=== PATIENT | female | born 1950 | race Hispanic/Latino ===

== ENCOUNTER 2017-11-22 08:20 | Day surgery (SDC) | payer MEDICARE, OTHER ==
[2017-11-22] MEDS ORDERED: TETRACAINE 0.5% OD SCH (10:45)
[2017-11-22] MEDS: VIGAMOX OD SCH ×3 (11:00→11:10)
[2017-11-22] MEDS: MYDRIACYL OD SCH ×3 (11:00→11:10)
[2017-11-22] MEDS: AK-Dilate OD SCH ×3 (11:00→11:10)
[2017-11-22] MEDS ORDERED: ZOFRAN IV PRN (11:26)
[2017-11-22] MEDS ORDERED: DILAUDID IV PRN (11:26)
[2017-11-22] MEDS ORDERED: NARCAN 0.4 MG/1 ML IV PRN (11:26)
--- NOTE | 2017-11-22 11:26 | Anesthesia Day of Surgery ---
Anesthesia Day of Surgery - Day of Surgery Patient Examined: Yes Patient H&P Reviewed: Yes Patient is NPO: Yes
--- NOTE | 2017-11-22 11:26 | Anesthesia Consultation ---
Anesthesia Consult and Med Hx Date of service: 11/22/17 (tolerates 6 METS. performs all ADLs. ) - Airway Anesthetic Teeth Evaluation: Dentures (full upper and lower), Edentulous ROM Head & Neck: Adequate Mental/Hyoid Distance: Adequate Mallampati Class: Class II Intubation Access Assessment: Good - Pulmonary Exam CTA: No (rhonchi in peripheral airways L>>R) - Cardiac Exam Cardiac Exam: RRR - Pre-Operative Health Status ASA Pre-Surgery Classification: ASA2 Proposed Anesthetic Plan: MAC - Pulmonary Hx Smoking: Yes (QUIT SOMETIME IN THE PAST YEAR) COPD: Yes - Cardiovascular System Hx Hypertension: Yes (WHITECOAT SYNDROME) - Central Nervous System Hx Psychiatric Problems: No - Endocrine Hx Hypothyroidism: Yes - Other Systems Hx Alcohol Use: No Hx Substance Use: No Hx Cancer: No
[2017-11-22] MEDS ORDERED: SUBLIMAZE ONE (11:57)
[2017-11-22] MEDS ORDERED: VERSED ONE (11:57)
[2017-11-22] MEDS ORDERED: DIAMOX PO ONE (12:30)
--- NOTE | 2017-11-22 12:41 | Operative Report ---
Operative Report Operative Report: PATIENT'S NAME: DATE OF : DATE OF SURGERY: 11/22/2017 PREOPERATIVE DIAGNOSIS: Cataract right eye POSTOPERATIVE DIAGNOSIS: Same OPERATIVE PROCEDURE: Phacoemulsification with intraocular lens implantation, right eye SURGEON: Kristen Gambino M.D. GROUND WATER PUMP INSTALLER SURGEON: Rachel Lens: [id number] 23.5 D ANESTHESIA: Monitored anesthesia care in combination with topical and intracameral anesthesia because of the established specific risk of reflux, arrhythmias, or anxiety attacks associated with ocular manipulation, as well as the difficulty of the diamond sizer and sorter to manage such potentially catastrophic events while simultaneously attempting to complete the surgical procedure and was deemed necessary for the patient's safety to have an Historic Interpreter present during the procedure whenever possible. An Historic Interpreter was utilized to regulate the intravenous sedation of the patient so the patient was cooperative yet not asleep in order for the patient to successfully maintain fixation of the eye on the operating light of the microscope. COMPLICATIONS: [No surgical complications] No blood loss. ALLERGIES: Codeine penicillin PROGNOSIS: Excellent INDICATIONS FOR SURGERY: The patient is undergoing surgery in the hopes of eliminating or improving these visual difficulties. PROCEDURE: After arriving at the surgery center, the patient was given topical anesthetic and dilating drops, as noted in the record. The patient was then taken into the operating room and given more anesthetic drops. The eyelids , lashes, and lid margins were scrubbed with Betadine solution, and the patient was draped. The Nurse Historic Interpreter administered IV sedation and monitored the patient during the procedure. The eye was then fixated with a 0.12, and a stab incision was made in the peripheral clear cornea into the anterior chamber. This was made on my left side. Viscoelastic was next used to fill the anterior chamber. The eye was once again fixated with the 0.12 forceps and a keratome was used make an incision in clear cornea peripherally on my right hand side temporally. The capsule forceps were used to open the central anterior capsule and then make a continuous round capsulotomy. Hydrodissection was carried out utilizing a cannula and balanced salt solution to delineate the cortical material from the capsule and the nucleus from the cortical material. The phaco tip was introduced into the eye and used to remove the anterior cortical material in the area of the capsulotomy. Then the phaco tip was buried into the nucleus, and a chopping instrument was introduced into the eye and used to provide countertraction in the nucleus between this instrument and the phaco tip fracturing the nucleus. This procedure was repeated multiple times, providing multiple small segments of the lens, and then the phaco tip was used to remove each of these segments. An I/A tip was then used to remove the remaining cortex. The anterior chamber was refilled with viscoelastic. An one-piece, acrylic intraocular lens was then placed into an inserting cartridge. The tip of the inserting cartridge was introduced into the keratome incision and into the anterior chamber. The implant was gently advanced through the cartridge and into the eye, where it unfolded, and both haptics were placed in the capsular bag, where it centered nicely and appeared to be well fixated. After placement of the intraocular lens, the I~and~A handpiece was placed back into the eye and used to remove the viscoelastic, including viscoelastic that was behind the optic of the intraocular lens. The anterior chamber was then filled with balanced salt solution, and hydration of the wound was used to cause swelling of the wound and more appropriate watertight closure. When the wound was found to be firm, the patient was asked to comment on how bright the light was. If there was no light perception at all or if the light was substantially dimmer than during the rest of the surgery, the amount of fluid in the eye was decompressed to lower the intraocular pressure until the patient could see the bright light again. This was done to avoid any damage or decreased blood flow to the optic nerve. MEDICATIONS APPLIED AT END OF SURGERY: One drop of Pred Forte and Vigamox The patient was given a shield to wear at night and was instructed not to rub or push on the eye. DISCHARGE SUMMARY: The patient was released in stable condition. The patient and those with the patient were given a written sheet of postoperative instructions and counseling on any abnormal laboratory studies. The patient is to see us tomorrow for follow-up in the office and is to call immediately for any difficulties. Kristen Gambino M.D. Date
--- NOTE | 2017-11-22 12:42 | Short Stay Summary ---
Short Stay Documentation Date of service: 11/22/17 - History H&P: obtained from office - Allergies and Medications Current Medications: Allergies codeine Allergy (Verified 11/21/17 15:01) NAUSEA AND VOMITING Penicillins Allergy (Verified 11/21/17 15:01) Hives Home Medications Medication Instructions Recorded Confirmed Last Taken Type Diltiazem [CarDIZEM] 60 mg PO BID 11/21/17 11/21/17 11/22/17 06:30 History Docusate Sodium [Colace] 100 mg PO BID PRN 11/21/17 11/21/17 11/21/17 History Ergocalciferol [Vitamin D2] 1 cap PO QWEEK 11/21/17 11/22/17 11/16/17 History Levothyroxine [Synthroid] 50 mcg PO QAM 11/21/17 11/21/17 11/22/17 06:30 History Magnesium Chloride 400 mg PO BID 11/21/17 11/21/17 11/21/17 History Montelukast Sodium [Singulair] 4 mg PO QHS 11/21/17 11/21/17 11/21/17 History Potassium Chloride [K-Dur] 10 meq PO QDAY 11/21/17 11/21/17 11/21/17 History Active Medications Hydromorphone HCl (Dilaudid) 0.25 mg IV Q10MIN PRN PRN Reason: Pain, Moderate (4-6) Stop: 11/22/17 18:00 Moxifloxacin HCl (Vigamox) 1 drops OD Q5MIN [facility] Stop: 11/24/17 17:00 Last Admin: 11/22/17 11:10 Dose: 1 drops Naloxone HCl (Narcan 0.4 Mg/1 Ml) 0.1 mg IV Q2MIN PRN PRN Reason: Res Rate </= 8 or 02 SAT < 92% Ondansetron HCl (Zofran) 4 mg IV ONCE PRN PRN Reason: Nausea And Vomiting Stop: 11/22/17 18:00 Prednisolone Acetate (Pred Forte 1%) 1 drops OD QID [facility] Tropicamide (Mydriacyl) 1 drops OD Q5MIN [facility] Stop: 11/24/17 10:47 Last Admin: 11/22/17 11:10 Dose: 1 drops - Brief post op/procedure progress note Date of procedure: 11/22/17 Pre-op diagnosis: right cataract Post-op diagnosis: same Procedure: Phacoemulsification with intraocular lens insertion right eye Anesthesia: MAC, local Surgeon: JOSE NOVOA Estimated blood loss: none Pathology: none Condition: stable - Disposition Condition at discharge: Good Disposition: DC-01 TO HOME OR SELFCARE - Discharge Diagnoses (1) Cataract Status: Acute Qualifiers: Cataract type: age-related Age-related cataract type: nuclear Laterality : right Qualified Code(s): H25.11 - Age-related nuclear cataract, right eye Short Stay Discharge Plan Additional Instructions: FOLLOW SURGEON INSTRUCTION SHEETS. Follow up with: WHIT RANGEL, [facility] DES[facility] [Primary Care Provider] - 7 Days Forms: Outpatient Surgery [facility] Inst.
[2017-11-22] MEDS ORDERED: PRED FORTE 1% OD SCH (14:00)
--- NOTE | 2017-11-22 15:33 | Post Anesthesia Evaluation ---
- Post Anesthesia Evaluation Patient Participated: Yes Airway Patent: Yes Stable Respiratory Function: Yes Nausea/Vomiting: No Temp > 96.8F: Yes Pain Manageable: Yes Adequeate Hydration: Yes Anesthesia Complications: No
[2017-11-22 19:14] VITALS: BP 117/63
== END 2017-11-22 13:10 | disposition home or self-care (01) ==
LOC: OR 08:20
DX: H26.9 Unspecified cataract (principal); I10 Essential (primary) hypertension; E03.9 Hypothyroidism, unspecified; Z88.0 Allergy status to penicillin; Z88.6 Allergy status to analgesic agent; Z87.891 Personal history of nicotine dependence
CPT/HCPCS: 66984; J2250; J3010; V2632

== ENCOUNTER 2017-12-06 07:27 | Day surgery (SDC) | payer MEDICARE, OTHER ==
--- NOTE | 2017-12-06 08:37 | Anesthesia Consultation ---
Anesthesia Consult and Med Hx Date of service: 12/06/17 - Airway Anesthetic Teeth Evaluation: Dentures, Edentulous ROM Head & Neck: Adequate Mental/Hyoid Distance: Adequate Mallampati Class: Class II Intubation Access Assessment: Probably Good - Pulmonary Exam CTA: Yes - Cardiac Exam Cardiac Exam: RRR - Pre-Operative Health Status ASA Pre-Surgery Classification: ASA2 Proposed Anesthetic Plan: MAC - Pulmonary Hx Smoking: Yes (ex smoker) COPD: Yes - Cardiovascular System Hx Hypertension: Yes (white coat) - Endocrine Hx Hypothyroidism: Yes - Additional Comments Anesthesia Medical History Comments: tolerated similar procedure and anesthesia on other eye well - 11/22
--- NOTE | 2017-12-06 08:37 | Anesthesia Day of Surgery ---
Anesthesia Day of Surgery - Day of Surgery Patient Examined: Yes Patient H&P Reviewed: Yes Patient is NPO: Yes
[2017-12-06] MEDS ORDERED: TETRACAINE 0.5% OS ONE (09:00)
[2017-12-06] MEDS: MYDRIACYL OS SCH ×2 (09:07→09:11)
[2017-12-06] MEDS: VIGAMOX OS SCH ×2 (09:08→09:11)
[2017-12-06] MEDS: AK-Dilate OS SCH ×2 (09:08→09:11)
[2017-12-06] MEDS ORDERED: VERSED ONE (10:31)
--- NOTE | 2017-12-06 11:07 | Operative Report ---
Operative Report Operative Report: PATIENT'S NAME: DATE OF : DATE OF SURGERY: 12/06/2017 PREOPERATIVE DIAGNOSIS: Cataract left eye POSTOPERATIVE DIAGNOSIS: Same OPERATIVE PROCEDURE: Phacoemulsification with intraocular lens implantation, left eye SURGEON: Kristen Gambino M.D. CHECKER PRODUCT DESIGN SURGEON: Rachel Lens: [id number] 23.0 D ANESTHESIA: Monitored anesthesia care in combination with topical and intracameral anesthesia because of the established specific risk of reflux, arrhythmias, or anxiety attacks associated with ocular manipulation, as well as the difficulty of the automatic tire tester to manage such potentially catastrophic events while simultaneously attempting to complete the surgical procedure and was deemed necessary for the patient's safety to have an Pull Up Hand present during the procedure whenever possible. An Pull Up Hand was utilized to regulate the intravenous sedation of the patient so the patient was cooperative yet not asleep in order for the patient to successfully maintain fixation of the eye on the operating light of the microscope. COMPLICATIONS: No surgical complications No blood loss. ALLERGIES: Codeine and penicillin PROGNOSIS: Excellent INDICATIONS FOR SURGERY: The patient is undergoing surgery in the hopes of eliminating or improving these visual difficulties. PROCEDURE: After arriving at the surgery center, the patient was given topical anesthetic and dilating drops, as noted in the record. The patient was then taken into the operating room and given more anesthetic drops. The eyelids , lashes, and lid margins were scrubbed with Betadine solution, and the patient was draped. The Nurse Pull Up Hand administered IV sedation and monitored the patient during the procedure. The eye was then fixated with a 0.12, and a stab incision was made in the peripheral clear cornea into the anterior chamber. This was made on my left side. Viscoelastic was next used to fill the anterior chamber. The eye was once again fixated with the 0.12 forceps and a keratome was used make an incision in clear cornea peripherally on my right hand side temporally. The capsule forceps were used to open the central anterior capsule and then make a continuous round capsulotomy. Hydrodissection was carried out utilizing a cannula and balanced salt solution to delineate the cortical material from the capsule and the nucleus from the cortical material. The phaco tip was introduced into the eye and used to remove the anterior cortical material in the area of the capsulotomy. Then the phaco tip was buried into the nucleus, and a chopping instrument was introduced into the eye and used to provide countertraction in the nucleus between this instrument and the phaco tip fracturing the nucleus. This procedure was repeated multiple times, providing multiple small segments of the lens, and then the phaco tip was used to remove each of these segments. An I/A tip was then used to remove the remaining cortex. The anterior chamber was refilled with viscoelastic. An one-piece, acrylic intraocular lens was then placed into an inserting cartridge. The tip of the inserting cartridge was introduced into the keratome incision and into the anterior chamber. The implant was gently advanced through the cartridge and into the eye, where it unfolded, and both haptics were placed in the capsular bag, where it centered nicely and appeared to be well fixated. After placement of the intraocular lens, the I~and~A handpiece was placed back into the eye and used to remove the viscoelastic, including viscoelastic that was behind the optic of the intraocular lens. The anterior chamber was then filled with balanced salt solution, and hydration of the wound was used to cause swelling of the wound and more appropriate watertight closure. When the wound was found to be firm, the patient was asked to comment on how bright the light was. If there was no light perception at all or if the light was substantially dimmer than during the rest of the surgery, the amount of fluid in the eye was decompressed to lower the intraocular pressure until the patient could see the bright light again. This was done to avoid any damage or decreased blood flow to the optic nerve. MEDICATIONS APPLIED AT END OF SURGERY: One drop of Pred Forte and Vigamox The patient was given a shield to wear at night and was instructed not to rub or push on the eye. DISCHARGE SUMMARY: The patient was released in stable condition. The patient and those with the patient were given a written sheet of postoperative instructions and counseling on any abnormal laboratory studies. The patient is to see us tomorrow for follow-up in the office and is to call immediately for any difficulties. Kristen Gambino M.D. Date
--- NOTE | 2017-12-06 11:07 | Short Stay Summary ---
Short Stay Documentation Date of service: 12/06/17 - History H&P: obtained from office - Allergies and Medications Current Medications: Allergies codeine Allergy (Verified 11/21/17 15:01) NAUSEA AND VOMITING Penicillins Allergy (Verified 11/21/17 15:01) Hives Home Medications Medication Instructions Recorded Confirmed Last Taken Type Diltiazem [CarDIZEM] 60 mg PO BID 11/21/17 12/06/17 12/05/17 21:00 History Docusate Sodium [Colace] 100 mg PO BID PRN 11/21/17 11/21/17 12/05/17 21:00 History Ergocalciferol [Vitamin D2] 1 cap PO QWEEK 11/21/17 12/06/17 11/30/17 09:00 History Levothyroxine [Synthroid] 50 mcg PO QAM 11/21/17 12/06/17 12/06/17 06:00 History Magnesium Chloride 400 mg PO BID 11/21/17 12/06/17 12/05/17 21:00 History Montelukast Sodium [Singulair] 4 mg PO QHS 11/21/17 12/06/17 12/05/17 21:00 History Potassium Chloride [K-Dur] 10 meq PO QDAY 11/21/17 12/06/17 12/05/17 09:00 History Active Medications Acetazolamide (Diamox) 500 mg PO ONCE ONE Stop: 12/06/17 11:07 Moxifloxacin HCl (Vigamox) 1 drops OS Q5MIN [facility] Stop: 12/08/17 09:01 Last Admin: 12/06/17 09:11 Dose: 1 drops Phenylephrine HCl (Ak-Dilate) 1 drops OS Q5MIN [facility] Stop: 12/08/17 08:51 Last Admin: 12/06/17 09:11 Dose: 1 drops Prednisolone Acetate (Pred Forte 1%) 1 drops OS QID [facility] Tropicamide (Mydriacyl) 1 drops OS Q5MIN [facility] Stop: 12/08/17 09:31 Last Admin: 12/06/17 09:11 Dose: 1 drops - Brief post op/procedure progress note Date of procedure: 12/06/17 Pre-op diagnosis: left cataract Post-op diagnosis: same Procedure: Phacoemulsification with intraocular lens insertion left eye Anesthesia: MAC, local Surgeon: JOSE NOVOA Estimated blood loss: none Pathology: none Condition: stable - Disposition Condition at discharge: Good Disposition: DC-01 TO HOME OR SELFCARE - Discharge Diagnoses (1) Cataract Status: Acute Qualifiers: Cataract type: age-related Age-related cataract type: nuclear Laterality : left Qualified Code(s): H25.12 - Age-related nuclear cataract, left eye Short Stay Discharge Plan Follow up with: WHIT RANGEL [Other] - 7 Days
[2017-12-06 11:13] VITALS: BP 101/60
[2017-12-06] MEDS ORDERED: DIAMOX PO NR (11:30)
[2017-12-06] MEDS ORDERED: PRED FORTE 1% OS SCH (12:00)
== END 2017-12-06 11:37 | disposition home or self-care (01) ==
LOC: OR 07:27
DX: H26.9 Unspecified cataract (principal); I10 Essential (primary) hypertension; J44.9 Chronic obstructive pulmonary disease, unspecified; E03.9 Hypothyroidism, unspecified; Z87.891 Personal history of nicotine dependence
CPT/HCPCS: 66984; J2250; V2632

== ENCOUNTER 2020-01-02 14:07 | Inpatient (IN) | payer MEDICARE, OTHER ==
[2020-01-02] MEDS ORDERED: DICYCLOMINE 20 MG/2 ML INJ IM ONE (14:18)
[2020-01-02] MEDS ORDERED: SODIUM CHLORIDE 0.9% 1000 ML 1,000 ML IV ONE (14:18)
--- NOTE | 2020-01-02 14:50 | Emergency Department Report ---
ED General Adult HPI - General Stated complaint: DIARRHEA Time Seen by Provider: 01/02/20 14:13 - History of Present Illness Initial comments: Patient is a 69-year-old female who is presenting with weakness and diarrhea for the past 3 days. Patient states she is been having large amounts of dark-colored stool. She denies nausea vomiting. Patient states she has crampy abdominal pain in the right lower quadrant. Patient denies fever. Katerina ent was found lying on the ground today covered in feces. Patient was states she was too weak to stand. Severity scale (0 -10): 6 Quality: other (crampy, worse at night) Consistency: colicky Associated Symptoms: loss of appetite, malaise, weakness. denies: confusion, chest pain, cough, diaphoresis, fever/chills, headaches, nausea/vomiting, rash, seizure, shortness of breath, syncope - Related Data Home Medications Medication Instructions Recorded Confirmed Last Taken Levothyroxine [Synthroid] 25 mcg PO QAM 11/21/17 01/02/20 01/02/20 Potassium Chloride [K-Dur] 10 meq PO QDAY 11/21/17 01/02/20 01/02/20 dilTIAZem [CarDIZEM] 120 mg PO BID 11/21/17 01/02/20 01/02/20 Albuterol Sulfate [Proair 90 mcg IH Q4H PRN 01/02/20 01/02/20 Unknown Digihaler] Magnesium Oxide 400 mg PO BID 01/02/20 01/02/20 01/02/20 Allergies Allergy/AdvReac Type Severity Reaction Status Date / Time codeine Allergy NAUSEA AND Verified 11/21/17 15:01 VOMITING lincomycin [From Lincocin] Allergy Unknown Verified 01/02/20 15:19 Penicillins Allergy Hives Verified 11/21/17 15:01 ED Review of Systems ROS: Stated complaint: DIARRHEA Other details as noted in HPI Comment: All other systems reviewed and negative ED Past Medical Hx - Past Medical History Hx Hypertension: Yes (white coat) Hx COPD: Yes - Social History Smoking Status: Former Smoker - Medications Home Medications: Home Medications Medication Instructions Recorded Confirmed Last Taken Type Levothyroxine [Synthroid] 25 mcg PO QAM 11/21/17 01/02/20 01/02/20 History Potassium Chloride [K-Dur] 10 meq PO QDAY 11/21/17 01/02/20 01/02/20 History dilTIAZem [CarDIZEM] 120 mg PO BID 11/21/17 01/02/20 01/02/20 History Albuterol Sulfate [Proair 90 mcg IH Q4H PRN 01/02/20 01/02/20 Unknown History Digihaler] Magnesium Oxide 400 mg PO BID 01/02/20 01/02/20 01/02/20 History ED Physical Exam - General General appearance: alert, in no apparent distress - Head Head exam: Present: atraumatic, normocephalic - Eye Eye exam: Present: normal appearance - ENT ENT exam: Present: mucous membranes dry - Neck Neck exam: Present: normal inspection - Respiratory Respiratory exam: Present: normal lung sounds bilaterally. Absent: respiratory distress, wheezes, rales - Cardiovascular Cardiovascular Exam: Present: regular rate, normal rhythm. Absent: normal heart sounds, systolic murmur, diastolic murmur, rubs, gallop - GI/Abdominal GI/Abdominal exam: Present: soft, tenderness (RLQ), normal bowel sounds. Absent: distended, guarding, rebound, rigid - Rectal Rectal exam: Present: normal inspection, heme (+) stool, black stool - Extremities Exam Extremities exam: Present: normal inspection - Back Exam Back exam: Present: normal inspection - Neurological Exam Neurological exam: Present: alert, oriented X3 - Psychiatric Psychiatric exam: Present: normal affect, normal mood - Skin Skin exam: Present: warm, dry, intact, normal color. Absent: rash ED Course Vital Signs 01/02/20 01/02/20 14:07 15:33 Temperature 98.6 F Pulse Rate 92 H Respiratory 14 14 Rate Blood Pressure 123/50 O2 Sat by Pulse 100 Oximetry ED Medical Decision Making - Lab Data Result diagrams: 01/02/20 15:10 01/02/20 15:10 - Medical Decision Making Patient is a 69-year-old female who is presenting with 3 days of diarrhea. Patient does have hematochezia and was guaiac positive. Patient was started on IV fluids and blood transfusion has been ordered. Critical Care Time: Yes (30) Critical care attestation.: If time is entered above; I have spent that time in minutes in the direct care of this critically ill patient, excluding procedure time. ED Disposition Clinical Impression: Gastrointestinal bleeding, Symptomatic anemia, Acute kidney injury, Dehydration Disposition: DC-09 OP ADMIT IP TO THIS HOSP Is pt being admited?: Yes Does the pt Need Aspirin: No Condition: Stable Time of Disposition: 16:37
[2020-01-02 15:59] LABS: Basophils # (Auto) 0.1 K/mm3 (0.0-0.1); Basophils % (Auto) 0.8 % (0.0-1.8); Eosinophils % (Auto) 0.6 % (0.0-4.3); Hematocrit 20.2 % (30.3-42.9); Hemoglobin 6.5 gm/dl (10.1-14.3); Lymphocytes # (Auto) 0.5 K/mm3 (1.2-5.4); Lymphocytes % (Auto) 7.1 % (13.4-35.0); Mean Corpuscular HGB Conc 32 % (30-34); Mean Corpuscular Volume 95 fl (79-97); Monocytes # (Auto) 0.8 K/mm3 (0.0-0.8); Monocytes % (Auto) 11.3 % (0.0-7.3); Platelet Count 218 K/mm3 (140-440); Red Blood Count 2.12 M/mm3 (3.65-5.03); Red Cell Distribution Width 17.2 % (13.2-15.2)
[2020-01-02] MEDS ORDERED: SODIUM CHLORIDE 0.9% 500 ML 500 ML IV ONE (16:03)
[2020-01-02 16:21] LABS: Alanine Aminotransferase 9 units/L (7-56); Albumin 3.4 g/dL (3.9-5); BUN/Creatinine Ratio 62; Blood Urea Nitrogen 31 mg/dL (7-17); Calcium 8.1 mg/dL (8.4-10.2); Hemolysis Index 11
[2020-01-02] MEDS ORDERED: SODIUM CHLORIDE 0.9% 500 ML 500 ML ONE (17:54)
--- NOTE | 2020-01-02 19:37 | History and Physical Report ---
History of Present Illness Date of examination: 01/02/20 Date of admission: 01/02/20 16:38 Chief complaint: Diarrhea for 3 days Generalized weakness for 3 days History of present illness: 69-year-old female who is presenting with weakness and diarrhea for t he past 3 days. Patient states she is been having large amounts of dark-colored stool. She denies nausea vomiting. Patient states she has crampy abdominal pain in the right lower quadrant. Patient denies fever. Patient was found lying on the ground today covered in feces. Patient was states she was too weak to stand. Severity scale (0 -10): 6 Quality: other (crampy, worse at night) Consistency: loose watery Associated Symptoms: loss of appetite, malaise, weakness. Past Medical History Hypertension COPD: Yes Hypothyroidism -Social History Smoking Status: Former Smoker Surgical History N/a Family History Htn - Medications Home Medications: Home Medications Medication Instructions Recorded Confirmed Last Taken Type Levothyroxine [Synthroid] 25 mcg PO QAM 11/21/17 01/02/20 01/02/20 History Potassium Chloride [K-Dur] 10 meq PO QDAY 11/21/17 01/02/20 01/02/20 History dilTIAZem [CarDIZEM] 120 mg PO BID 11/21/17 01/02/20 01/02/20 History Albuterol Sulfate [Proair 90 mcg IH Q4H PRN 01/02/20 01/02/20 Unknown History Digihaler] Magnesium Oxide 400 mg PO BID 01/02/20 01/02/20 01/02/20 History Medications and Allergies Allergies Allergy/AdvReac Type Severity Reaction Status Date / Time codeine Allergy NAUSEA AND Verified 11/21/17 15:01 VOMITING lincomycin [From Lincocin] Allergy Unknown Verified 01/02/20 15:19 Penicillins Allergy Hives Verified 11/21/17 15:01 Home Medications Medication Instructions Recorded Confirmed Last Taken Type Levothyroxine [Synthroid] 25 mcg PO QAM 11/21/17 01/02/20 01/02/20 History Potassium Chloride [K-Dur] 10 meq PO QDAY 11/21/17 01/02/20 01/02/20 History dilTIAZem [CarDIZEM] 120 mg PO BID 11/21/17 01/02/20 01/02/20 History Albuterol Sulfate [Proair 90 mcg IH Q4H PRN 01/02/20 01/02/20 Unknown History Digihaler] Magnesium Oxide 400 mg PO BID 01/02/20 01/02/20 01/02/20 History Review of Systems All systems: negative Constitutional: fatigue, weakness, poor appetite, no weight loss, no weight gain, no fever, no chills, no sweats, no night sweats Ears, nose, mouth and throat: no ear pain, no ear discharge, no tinnitis, no decreased hearing, no nose pain, no nasal congestion, no nasal discharge, no sinus pressure, no sinus pain Breasts: deferred Cardiovascular: no chest pain, no orthopnea, no palpitations, no rapid/irregular heart beat, no edema, no syncope, no lightheadedness, no shortness of breath Respiratory: no cough, no cough with sputum, no excessive sputum, no hemoptysis, no shortness of breath, no dyspnea on exertion Gastrointestinal: diarrhea, change in bowel habits, loss of appetite, no abdominal pain, no nausea, no vomiting Genitourinary Female: no dysuria, no urinary frequency, no urgency Integumentary: no rash, no pruritis, no redness, no sores Neurological: no head injury, no transient paralysis, no paralysis, no weakness, no parathesias Psychiatric: no anxiety, no memory loss, no change in sleep habits, no sleep disturbances, no insomnia, no hypersomnia Endocrine: no cold intolerance, no heat intolerance, no polyphagia, no excessive thirst Hematologic/Lymphatic: no easy bruising, no easy bleeding Allergic/Immunologic: no urticaria, no allergic rhinitis, no wheezing Exam - Constitutional Vitals: Temp Pulse Resp BP Pulse Ox 98.6 F 87 16 98/57 95 01/02/20 19:22 01/02/20 19:22 01/02/20 19:22 01/02/20 19:22 01/02/20 19:22 General appearance: Present: no acute distress, well-nourished - EENT Eyes: Present: PERRL ENT: hearing intact, clear oral mucosa - Neck Neck: Present: supple, normal ROM - Respiratory Respiratory effort: normal Respiratory: bilateral: CTA - Cardiovascular Heart rate: 88 Rhythm: regular Heart Sounds: Present: S1 & S2. Absent: rub, click - Extremities Extremities: pulses symmetrical, No edema Peripheral Pulses: within normal limits - Abdominal General gastrointestinal: Present: soft, non-tender, non-distended, normal bowel sounds Female genitourinary: Present: normal - Integumentary Integumentary: Present: clear, warm, dry - Musculoskeletal Musculoskeletal: gait normal, strength equal bilaterally - Psychiatric Psychiatric: appropriate mood/affect, intact judgment & insight - Neurologic Neurologic: CNII-XII intact, moves all extremities - Allied Health Allied health notes reviewed: nursing, case management Results - Labs CBC & Chem 7: 01/03/20 05:37 01/03/20 05:37 Labs: Laboratory Last Values WBC 6.9 K/mm3 (4.5-11.0) 01/02/20 15:10 RBC 2.12 M/mm3 (3.65-5.03) L 01/02/20 15:10 Hgb 6.5 gm/dl (10.1-14.3) L 01/02/20 15:10 Hct 20.2 % (30.3-42.9) L 01/02/20 15:10 MCV 95 fl (79-97) 01/02/20 15:10 MCH 31 pg (28-32) 01/02/20 15:10 MCHC 32 % (30-34) 01/02/20 15:10 RDW 17.2 % (13.2-15.2) H 01/02/20 15:10 Plt Count 218 K/mm3 (140-440) 01/02/20 15:10 Lymph % (Auto) 7.1 % (13.4-35.0) L 01/02/20 15:10 [place] % (Auto) 11.3 % (0.0-7.3) H 01/02/20 15:10 Eos % (Auto) 0.6 % (0.0-4.3) 01/02/20 15:10 Baso % (Auto) 0.8 % (0.0-1.8) 01/02/20 15:10 Lymph # 0.5 K/mm3 (1.2-5.4) L 01/02/20 15:10 [place] # 0.8 K/mm3 (0.0-0.8) 01/02/20 15:10 Eos # 0.0 K/mm3 (0.0-0.4) 01/02/20 15:10 Baso # 0.1 K/mm3 (0.0-0.1) 01/02/20 15:10 Seg Neutrophils % 80.2 % (40.0-70.0) H 01/02/20 15:10 Seg Neutrophils # 5.5 K/mm3 (1.8-7.7) 01/02/20 15:10 Sodium 137 mmol/L (137-145) 01/02/20 15:10 Potassium 3.7 mmol/L (3.6-5.0) 01/02/20 15:10 Chloride 99.5 mmol/L (98-107) 01/02/20 15:10 Carbon Dioxide 25 mmol/L (22-30) 01/02/20 15:10 Anion Gap 16 mmol/L 01/02/20 15:10 BUN 31 mg/dL (7-17) H 01/02/20 15:10 Creatinine 0.5 mg/dL (0.7-1.2) L 01/02/20 15:10 Estimated GFR > 60 ml/min 01/02/20 15:10 BUN/Creatinine Ratio 62 % 01/02/20 15:10 Glucose 85 mg/dL (65-100) 01/02/20 15:10 Calcium 8.1 mg/dL (8.4-10.2) L 01/02/20 15:10 Total Bilirubin < 0.20 mg/dL (0.1-1.2) 01/02/20 15:10 AST 19 units/L (5-40) 01/02/20 15:10 ALT 9 units/L (7-56) 01/02/20 15:10 Alkaline Phosphatase 55 units/L (35-129) 01/02/20 15:10 Total Protein 5.7 g/dL (6.3-8.2) L 01/02/20 15:10 Albumin 3.4 g/dL (3.9-5) L 01/02/20 15:10 Albumin/Globulin Ratio 1.5 % 01/02/20 15:10 Blood Type A NEGATIVE 01/02/20 16:07 Antibody Screen Negative 01/02/20 16:07 Crossmatch See Detail 01/02/20 16:07 Short CBC 01/02/20 01/03/20 Range/Units 15:10 05:37 WBC 6.9 3.6 L (4.5-11.0) K/mm3 Hgb 6.5 L 6.3 L (10.1-14.3) gm/dl Hct 20.2 L 18.8 L* (30.3-42.9) % Plt Count 218 171 (140-440) K/mm3 BMP 01/02/20 01/03/20 15:10 05:37 Sodium 137 138 Potassium 3.7 3.1 L Chloride 99.5 100.6 Carbon Dioxide 25 26 BUN 31 H 19 H Creatinine 0.5 L 0.3 L Glucose 85 91 Calcium 8.1 L 7.5 L Liver Function 01/02/20 01/03/20 Range/Units 15:10 05:37 Total Bilirubin < 0.20 0.40 (0.1-1.2) mg/dL AST 19 14 (5-40) units/L ALT 9 7 (7-56) units/L Alkaline Phosphatase 55 46 (35-129) units/L Albumin 3.4 L 2.8 L (3.9-5) g/dL Microbiology: Microbiology 01/02/20 14:05 Stool Stool Occult Blood (JESUS) - Final Assessment and Plan Advance Directives: Yes (Full code) VTE prophylaxis?: Mechanical Plan of care discussed with patient/family: Yes - Patient Problems (1) Gastrointestinal bleeding Current Visit: Yes Status: Acute Qualifiers: GI bleed type/associated pathology: diverticulosis Qualified Code(s): K57.91 - Diverticulosis of intestine, part unspecified, without perforation or abscess with bleeding Plan to address problem: Has lower GI bleed. Small amounts GI eval Transfuse as nnecessary (2) Acute kidney injury Current Visit: Yes Status: Acute Plan to address problem: Secondary to Volume depletion Vasomotor nephropathy (3) Symptomatic anemia Current Visit: Yes Status: Acute Plan to address problem: Transfuse one to two units of PRBC GI bleed -??Cause of anemia Diff Dx--Nutritional (4) Dehydration Current Visit: Yes Status: Acute Plan to address problem: IV fluids for now (5) HTN (hypertension) Current Visit: Yes Status: Chronic Qualifiers: Hypertension type: essential hypertension Qualified Code(s): I10 - Essential (primary) hypertension Plan to address problem: Cont antihypertensives (6) Hypothyroidism (acquired) Current Visit: Yes Status: Chronic Plan to address problem: Check TSH Cont synthyroid (7) COPD (chronic obstructive pulmonary disease) Current Visit: Yes Status: Inactive Qualifiers: COPD type: unspecified COPD Qualified Code(s): J44.9 - Chronic obstructive pulmonary disease, unspecified Plan to address problem: Bronchodilators prn (8) Gastroenteritis Current Visit: Yes Status: Acute Plan to address problem: R/o C diff Stool cultures (9) Hypokalemia Current Visit: Yes Status: Acute Plan to address problem: Supplemented (10) DVT prophylaxis Current Visit: Yes Status: Acute Plan to address problem: On SCD's and GI prophylaxis
[2020-01-02] MEDS ORDERED: ALBUTEROL SULFATE 90 MCG IH PRN (19:39)
[2020-01-02] MEDS ORDERED: HYDROmorphone 1 MG/1 ML INJ IV PRN (19:41)
[2020-01-02] MEDS ORDERED: ONDANSETRON 4 MG/2 ML INJ IV PRN (19:41)
[2020-01-02] MEDS ORDERED: METOCLOPRAMIDE 10 MG/2 ML INJ IV PRN (19:41)
[2020-01-02] MEDS ORDERED: ALBUTEROL 2.5 MG/3 ML NEBU IH PRN (19:44)
[2020-01-02] MEDS: FAMOTIDINE 20 MG/2 ML INJ IV SCH (23:42)
[2020-01-02] MEDS: D5W/0.9% NACL 1,000 ML IV SCH (23:42)
[2020-01-03] MEDS: dilTIAZem 60 MG TAB PO SCH ×3 (00:07→21:45)
[2020-01-03] MEDS: LEVOTHYROXINE 25 MCG TAB PO SCH (06:11)
[2020-01-03 06:26] LABS: Basophils % (Auto) 1.4 % (0.0-1.8); Eosinophils # (Auto) 0.1 K/mm3 (0.0-0.4); Eosinophils % (Auto) 2.3 % (0.0-4.3); Hemoglobin 6.3 gm/dl (10.1-14.3); Lymphocytes # (Auto) 0.4 K/mm3 (1.2-5.4); Lymphocytes % (Auto) 10.6 % (13.4-35.0); Mean Corpuscular HGB Conc 34 % (30-34); Mean Corpuscular Volume 93 fl (79-97); Monocytes # (Auto) 0.5 K/mm3 (0.0-0.8); Monocytes % (Auto) 14.1 % (0.0-7.3); Platelet Count 171 K/mm3 (140-440); Red Blood Count 2.02 M/mm3 (3.65-5.03); Red Cell Distribution Width 16.7 % (13.2-15.2)
[2020-01-03 06:45] LABS: Alanine Aminotransferase 7 units/L (7-56); Albumin 2.8 g/dL (3.9-5); BUN/Creatinine Ratio 63; Blood Urea Nitrogen 19 mg/dL (7-17); Calcium 7.5 mg/dL (8.4-10.2); Hemolysis Index 2
[2020-01-03 07:11] LABS: Hematocrit 18.8 % (30.3-42.9)
[2020-01-03] MEDS: FAMOTIDINE 20 MG/2 ML INJ IV SCH (09:30)
[2020-01-03] MEDS: D5W/0.9% NACL 1,000 ML IV SCH (09:32)
[2020-01-03] MEDS ORDERED: LEVOTHYROXINE 50 MCG TAB PO SCH (10:00)
[2020-01-03] MEDS ORDERED: POTASSIUM CHLORIDE 10 MEQ 10 MEQ/100 ML BAG IV SCH (10:00)
[2020-01-03] MEDS ORDERED: SODIUM CHLORIDE 0.9% 500 ML 500 ML IV ONE (10:00)
[2020-01-03] MEDS: POTASSIUM CHLORIDE ER 20 MEQ TAB PO SCH (10:12)
[2020-01-03] MEDS ORDERED: POTASSIUM CHLORIDE ER 20 MEQ TAB PO ONE (12:00)
[2020-01-03] MEDS ORDERED: PNEUMOCOCCAL 23 Valent 0.5 ML VIAL IM ONE (12:00)
--- NOTE | 2020-01-03 12:33 | Progress Note ---
Assessment and Plan - Patient Problems (1) Acute kidney injury Current Visit: Yes Status: Acute Plan to address problem: Secondary to prerenal azotemia. IV volume hydration. (2) Gastroenteritis Current Visit: Yes Status: Acute Plan to address problem: Patient being treated for gastroenteritis however (3) Gastrointestinal bleeding Current Visit: Yes Status: Acute Qualifiers: GI bleed type/associated pathology: diverticulosis Qualified Code(s): K57.91 - Diverticulosis of intestine, part unspecified, without perforation or abscess with bleeding Plan to address problem: Patient with acute GI blood loss anemia. Patient H&H 6 and 18 tolerating transfusion well. Patient has an additional unit pending now. GI consult is been obtained. For potential EGD. Continue proton pump inhibitor. Patient also tolerating clear liquids. If patient not getting any procedure today will advance diet. (4) Hypokalemia Current Visit: Yes Status: Acute Plan to address problem: Correct p.o. at this time. (5) Symptomatic anemia Current Visit: Yes Status: Acute (6) HTN (hypertension) Current Visit: Yes Status: Chronic Qualifiers: Hypertension type: essential hypertension Qualified Code(s): I10 - Essential (primary) hypertension Plan to address problem: At present patient has optimal control continue medical management. (7) Hypothyroidism (acquired) Current Visit: Yes Status: Chronic Plan to address problem: Follow TSH continue Synthroid at current dose. (8) COPD (chronic obstructive pulmonary disease) Current Visit: Yes Status: Inactive Qualifiers: COPD type: unspecified COPD Qualified Code(s): J44.9 - Chronic obstructive pulmonary disease, unspecified Plan to address problem: Patient with only mild minimal wheezing. Continue nebulized as needed albuterol MDI as needed. History Interval history: Patient 69-year-old female with history of hypothyroidism, COPD presents with 2 to 3-day history of weakness associated with some diarrhea. Patient was noted to have crampy abdominal pain and dark-colored stool which she described as maroon. Patient states she has not had any diarrhea however continues to have dark tarry stool. Patient was found down at home covered in feces. Initial presentation to the ED found hemoglobin and hematocrit to be 6 and 18. Patient now has no nausea vomiting has not had a bowel movement. No crampy abdominal pain. That has resolved. Patient remains anemic today with a H&H of 6 and 18. Hospitalist Physical - Constitutional Vitals: Temp Pulse Resp BP Pulse Ox 98.3 F 69 18 103/53 97 01/03/20 07:26 01/03/20 07:26 01/03/20 08:35 01/03/20 10:54 01/03/20 07:26 General appearance: Present: no acute distress, well-nourished - EENT Eyes: Present: PERRL, EOM intact ENT: hearing intact, clear oral mucosa, dentition normal - Neck Neck: Present: supple, normal ROM - Respiratory Respiratory: bilateral: CTA - Cardiovascular Rhythm: regular - Extremities Extremities: no ischemia, pulses intact, pulses symmetrical, No edema Peripheral Pulses: within normal limits - Abdominal General gastrointestinal: soft, non-tender, non-distended, normal bowel sounds - Integumentary Integumentary: Present: clear, warm, dry - Psychiatric Psychiatric: appropriate mood/affect, intact judgment & insight - Neurologic Neurologic: CNII-XII intact, moves all extremities Results - Labs CBC & Chem 7: 01/03/20 05:37 01/03/20 05:37 Labs: Laboratory Last Values WBC 3.6 K/mm3 (4.5-11.0) L 01/03/20 05:37 RBC 2.02 M/mm3 (3.65-5.03) L 01/03/20 05:37 Hgb 6.3 gm/dl (10.1-14.3) L 01/03/20 05:37 Hct 18.8 % (30.3-42.9) L* 01/03/20 05:37 MCV 93 fl (79-97) 01/03/20 05:37 MCH 31 pg (28-32) 01/03/20 05:37 MCHC 34 % (30-34) 01/03/20 05:37 RDW 16.7 % (13.2-15.2) H 01/03/20 05:37 Plt Count 171 K/mm3 (140-440) 01/03/20 05:37 Lymph % (Auto) 10.6 % (13.4-35.0) L 01/03/20 05:37 [place] % (Auto) 14.1 % (0.0-7.3) H 01/03/20 05:37 Eos % (Auto) 2.3 % (0.0-4.3) 01/03/20 05:37 Baso % (Auto) 1.4 % (0.0-1.8) 01/03/20 05:37 Lymph # 0.4 K/mm3 (1.2-5.4) L 01/03/20 05:37 [place] # 0.5 K/mm3 (0.0-0.8) 01/03/20 05:37 Eos # 0.1 K/mm3 (0.0-0.4) 01/03/20 05:37 Baso # 0.0 K/mm3 (0.0-0.1) 01/03/20 05:37 Seg Neutrophils % 71.6 % (40.0-70.0) H 01/03/20 05:37 Seg Neutrophils # 2.6 K/mm3 (1.8-7.7) 01/03/20 05:37 Sodium 138 mmol/L (137-145) 01/03/20 05:37 Potassium 3.1 mmol/L (3.6-5.0) L 01/03/20 05:37 Chloride 100.6 mmol/L (98-107) 01/03/20 05:37 Carbon Dioxide 26 mmol/L (22-30) 01/03/20 05:37 Anion Gap 15 mmol/L 01/03/20 05:37 BUN 19 mg/dL (7-17) H 01/03/20 05:37 Creatinine 0.3 mg/dL (0.7-1.2) L 01/03/20 05:37 Estimated GFR > 60 ml/min 01/03/20 05:37 BUN/Creatinine Ratio 63 % 01/03/20 05:37 Glucose 91 mg/dL (65-100) 01/03/20 05:37 Hemoglobin A1c 4.6 % (4-6) 01/02/20 20:44 Calcium 7.5 mg/dL (8.4-10.2) L 01/03/20 05:37 Total Bilirubin 0.40 mg/dL (0.1-1.2) 01/03/20 05:37 AST 14 units/L (5-40) 01/03/20 05:37 ALT 7 units/L (7-56) 01/03/20 05:37 Alkaline Phosphatase 46 units/L (35-129) 01/03/20 05:37 Total Protein 5.0 g/dL (6.3-8.2) L 01/03/20 05:37 Albumin 2.8 g/dL (3.9-5) L 01/03/20 05:37 Albumin/Globulin Ratio 1.3 % 01/03/20 05:37 Blood Type A NEGATIVE 01/02/20 16:07 Antibody Screen Negative 01/02/20 16:07 Crossmatch See Detail 01/02/20 16:07 Microbiology: Microbiology 01/02/20 14:05 Stool Stool Occult Blood (JESUS) - Final [place]/IV: Voiding Method Incontinent IV Catheter Type [Left Peripheral IV External Jugular] Active Medications - Current Medications Current Medications: Generic Name Dose Route Start Last Admin Trade Name Freq PRN Reason Stop Dose Admin Acetaminophen 650 mg 01/02/20 19:41 Tylenol PO Q4H PRN Pain MILD(1-3)/Fever >100.5/RICHEY Albuterol 2.5 mg 01/02/20 19:44 Proventil IH Q4HRT PRN Wheezing Diltiazem HCl 120 mg 01/02/20 22:00 01/03/20 10:54 Cardizem PO Not Given BID LAVELLE Famotidine 20 mg 01/02/20 22:00 01/03/20 09:30 Pepcid IV 20 mg BID LAVELLE Administration Hydromorphone HCl 0.5 mg 01/02/20 19:41 Dilaudid IV Q3H PRN Pain , Severe (7-10) Dextrose/Sodium Chloride 1,000 mls @ 100 mls/hr 01/02/20 20:00 01/03/20 09:32 D5ns IV 100 mls/hr DIRECT LAVELLE Administration Levothyroxine Sodium 25 mcg 01/03/20 06:00 01/03/20 06:11 Synthroid PO 25 mcg DAILY@0600 LAVELLE Administration Metoclopramide HCl 10 mg 01/02/20 19:41 Reglan IV Q6H PRN Nausea And Vomiting Ondansetron HCl 4 mg 01/02/20 19:41 Zofran IV Q8H PRN Nausea And Vomiting Potassium Chloride 20 meq 01/03/20 10:00 01/03/20 10:12 K-Dur PO 20 meq QDAY LAVELLE Administration Sodium Chloride 10 ml 01/02/20 22:00 05/23/20 09:32 Sodium Chloride Flush Syringe 10 Ml IV 10 ml BID LAVELLE Administration Sodium Chloride 10 ml 01/02/20 19:41 Sodium Chloride Flush Syringe 10 Ml IV PRN PRN LINE FLUSH Nutrition/Malnutrition Assess - Dietary Evaluation Nutrition/Malnutrition Findings: Nutrition Notes Start: 01/03/20 09:05 Freq: Status: Active Protocol: Document 01/03/20 09:05 LP (Rec: 01/03/20 09:12 LP [email or web address]) Nutrition Notes Need for Assessment generated from: MD Order Initial or Follow up Assessment Current Diagnosis Acute Kidney Injury,COPD, Decubitus(Pressure Ulcer), Hypertension Other Pertinent Diagnosis GIB, dehydration, sacral wound Current Diet Clear liquid with Ensure clear Labs/Tests K 3.1 BUN 19 Pertinent Medications D5NS at 100ml/hr Height 5 ft 4 in Weight 42.1 kg Usual Body Weight 44 kg [place] Body Weight (kg) 54.54 BMI 15.9 Weight change and time frame 4.5% wt loss in 1 week Weight Status Underweight Subjective/Other Information Consult for wt loss in 1 week. GI Symptoms Other Current % PO Negligible Minimum of two criteria Yes Interpretation of Weight Loss (severe) >2% in 1 week Reduced Assistant Credit Manager Strength Measurably Reduced (severe) #2 Nutrition Diagnosis Increased nutrient needs ( specify in comment below) Comments: protein Etiology wound healing As Evidenced by Signs and Symptoms pt with sacral wound #1 Nutrition Diagnosis Malnutrition Etiology chronic illness As Evidenced by Signs and Symptoms 4.5% wt loss in 1 week, bilateral weak advanced practice nurse psychotherapist Is patient on ventilator? No Is Patient Ambulatory and/or Out of Bed No REE-([facility]-confined to bed) 1123.320 Kcal/Kg value to use for calculation 37 Approximate Energy Requirements Using 1558 kcal/Kg Calculation Used for Recommendations Kcal/kg Additional Notes Protein needs are 50-63g (1.2- 1.5g/kg) Fluid needs are 1ml/kcal Nutrition Intervention Change Diet Order: Advance as feasible Add Supplement/Snack (indicate name/kcal Ensure Clear TID /protein ) Provides kCal: 720 Provides Protein (gm) 24 Goal #1 Meet at least 75% of kcal and protein needs via clear liquid diet and ONS Goal #2 Wound healing Goal #3 Weight gain/ maintenance Anticipated Discharge Needs: Unable to determine at this time Follow-Up By: 01/05/20 Additional Comments Follow for intakes/diet advancement
[2020-01-03] MEDS ORDERED: SODIUM CHLORIDE 0.9% 500 ML 500 ML IV NR (16:00)
--- NOTE | 2020-01-03 17:35 | Gastroenterology Consultation ---
History of Present Illness - Reason for Consult Consult date: 01/03/20 Melena Requesting physician: TIM DUCKWORTH - History of Present Illness The patient is a 69 yo female admitted with a 3 day hx of dark, tarry stools that she described as "diarrhea." Since admit, she has had no BMs. She also has been tolerating a regular diet without N/V/abdominal pain. She does admit to "lots" of aleve daily for the last several days, for various aches and pains. Of note, she has a hx of anal or rectal cancer, dx [address] Rucker, and had chemo/radiation/surgery ending in 2019. She has been taking MgOx recently (she thinks SE of her chemo) but says her bowels are usually constipated, not diarrhea. She has no hx of PUD and has never had an upper endoscopy. She is re c'ing a 2nd unit of blood currently. Past History Past Medical History: cancer (Anal v Rectal (patient not sure) - dx 2018), COPD, hypertension Past Surgical History: bowel surgery (Colorectal surgery 2019 (cancer)) Social history: denies: smoking Family history: no significant family history Medications and Allergies Allergies Allergy/AdvReac Type Severity Reaction Status Date / Time codeine Allergy NAUSEA AND Verified 11/21/17 15:01 VOMITING lincomycin [From Lincocin] Allergy Unknown Verified 01/02/20 15:19 Penicillins Allergy Hives Verified 11/21/17 15:01 Home Medications Medication Instructions Recorded Confirmed Last Taken Type Levothyroxine [Synthroid] 25 mcg PO QAM 11/21/17 01/02/20 01/02/20 History Potassium Chloride [K-Dur] 10 meq PO QDAY 11/21/17 01/02/20 01/02/20 History dilTIAZem [CarDIZEM] 120 mg PO BID 11/21/17 01/02/20 01/02/20 History Albuterol Sulfate [Proair 90 mcg IH Q4H PRN 01/02/20 01/02/20 Unknown History Digihaler] Magnesium Oxide 400 mg PO BID 01/02/20 01/02/20 01/02/20 History Active Meds: Active Medications Acetaminophen (Tylenol) 650 mg PO Q4H PRN PRN Reason: Pain MILD(1-3)/Fever >100.5/RICHEY Albuterol (Proventil) 2.5 mg IH Q4HRT PRN PRN Reason: Wheezing Diltiazem HCl (Cardizem) 120 mg PO BID [facility] Last Admin: 01/03/20 10:54 Dose: Not Given Documented by: Hydromorphone HCl (Dilaudid) 0.5 mg IV Q3H PRN PRN Reason: Pain , Severe (7-10) Dextrose/Sodium Chloride (D5ns) 1,000 mls @ 100 mls/hr IV DIRECT [facility] Last Admin: 01/03/20 09:32 Dose: 100 mls/hr Documented by: Sodium Chloride (Nacl 0.9% 500 Ml) 500 mls @ 0 mls/hr IV ONCE NR Stop: 01/04/20 15:59 Levothyroxine Sodium (Synthroid) 25 mcg PO DAILY@0600 [facility] Last Admin: 01/03/20 06:11 Dose: 25 mcg Documented by: Metoclopramide HCl (Reglan) 10 mg IV Q6H PRN PRN Reason: Nausea And Vomiting Ondansetron HCl (Zofran) 4 mg IV Q8H PRN PRN Reason: Nausea And Vomiting Pantoprazole Sodium (Protonix) 40 mg IV BID [facility] Potassium Chloride (K-Dur) 20 meq PO QDAY [facility] Last Admin: 01/03/20 10:12 Dose: 20 meq Documented by: Sodium Chloride (Sodium Chloride Flush Syringe 10 Ml) 10 ml IV BID [facility] Last Admin: 01/03/20 09:32 Dose: 10 ml Documented by: Sodium Chloride (Sodium Chloride Flush Syringe 10 Ml) 10 ml IV PRN PRN PRN Reason: LINE FLUSH I HAVE REVIEWED/RECONCILED MEDICATIONS Review of Systems - Review of Systems All systems: negative (as otherwise noted) Gastrointestinal: melena Exam - Constitutional Vital Signs: Temp Pulse Resp BP Pulse Ox 98 F 78 18 134/56 96 01/03/20 17:04 01/03/20 17:04 01/03/20 17:22 01/03/20 17:22 01/03/20 17:04 General appearance: no acute distress, cachectic - EENT Eyes: PERRL, EOM intact ENT: hearing intact, clear oral mucosa - Neck Neck: supple, normal ROM - Respiratory Respiratory effort: normal Respiratory: bilateral: CTA - Cardiovascular Rhythm: regular Heart Sounds: Present: S1 & S2 Extremities: no ischemia, No edema - Gastrointestinal General gastrointestinal: Present: soft, non-tender, non-distended - Integumentary Integumentary: Present: clear, warm, dry - Neurologic Neurological: alert and oriented x3 - Labs CBC & Chem 7: 01/03/20 05:37 01/03/20 05:37 Lab Results: Laboratory Results - last 24 hr 01/02/20 01/02/20 01/03/20 16:07 20:44 05:37 WBC 3.6 L RBC 2.02 L Hgb 6.3 L Hct 18.8 L* MCV 93 MCH 31 MCHC 34 RDW 16.7 H Plt Count 171 Lymph % (Auto) 10.6 L [place] % (Auto) 14.1 H Eos % (Auto) 2.3 Baso % (Auto) 1.4 Lymph # 0.4 L [place] # 0.5 Eos # 0.1 Baso # 0.0 Seg Neutrophils % 71.6 H Seg Neutrophils # 2.6 Sodium Potassium Chloride Carbon Dioxide Anion Gap BUN Creatinine Estimated GFR BUN/Creatinine Ratio Glucose Hemoglobin A1c 4.6 Calcium Total Bilirubin AST ALT Alkaline Phosphatase Total Protein Albumin Albumin/Globulin Ratio Blood Type A NEGATIVE Antibody Screen Negative Crossmatch See Detail 01/03/20 05:37 WBC RBC Hgb Hct MCV MCH MCHC RDW Plt Count Lymph % (Auto) [place] % (Auto) Eos % (Auto) Baso % (Auto) Lymph # [place] # Eos # Baso # Seg Neutrophils % Seg Neutrophils # Sodium 138 Potassium 3.1 L Chloride 100.6 Carbon Dioxide 26 Anion Gap 15 BUN 19 H Creatinine 0.3 L Estimated GFR > 60 BUN/Creatinine Ratio 63 Glucose 91 Hemoglobin A1c Calcium 7.5 L Total Bilirubin 0.40 AST 14 ALT 7 Alkaline Phosphatase 46 Total Protein 5.0 L Albumin 2.8 L Albumin/Globulin Ratio 1.3 Blood Type Antibody Screen Crossmatch Assessment and Plan - Patient Problems (1) Melena Current Visit: Yes Status: Acute Plan to address problem: - Likely PUD given recent overuse of Aleve. - Will start on protonix, and d/c pepcid. - Continue transfusion as you are doing. - MVI with iron daily. - Upper endoscopy in the AM, sooner if clinically indicated. - Patient to d/c all NSAIDs (and MgOx for now, as likely worsening diarrhea).
[2020-01-03] MEDS: PANTOPRAZOLE 40 MG INJ IV SCH (21:45)
[2020-01-04] MEDS: D5W/0.9% NACL 1,000 ML IV SCH ×2 (02:05→12:59)
[2020-01-04] MEDS: LEVOTHYROXINE 25 MCG TAB PO SCH (05:54)
[2020-01-04] MEDS ORDERED: SODIUM CHLORIDE 0.9% 1000 ML 1,000 ML IV SCH (07:45)
[2020-01-04] MEDS ORDERED: SODIUM CHLORIDE 0.9% 1000 ML 1,000 ML ONE (08:00)
[2020-01-04] MEDS ORDERED: propofoL 200 MG/20 ML VIAL IV ONE (08:56)
--- NOTE | 2020-01-04 09:11 | Post Operative Note ---
Pre-op diagnosis: Melena Post-op diagnosis: other (DU, Gastritis) Findings: 1. Large (2cm) white-based cratered ulcer in duodenal bulb - Margins biopsied, but likely NSAID-related - No evidence of obstruction (scope passed easily) 2. Severe erosive gastritis in the antrum of the stomach 3. Hiatal Hernia Procedure: EGD with cold biopsy Anesthesia: MAC Surgeon: CRISTIN MORGAN Estimated blood loss: minimal Pathology: list (1. Duodenal ulcer. 2. Antrum gastritis.) Specimen disposition: to lab Condition: stable Disposition: floor (Recs: 1. Patient must d/c all NSAIDs and smoking (even cardiac ASA). 2. Continue protonix daily therapy. 3. If ulcer rebleeds, large size would preclude endoscopic treatment; will need IR embolization. 4. Advance diet, and may d/c home when hct stable/taking PO.)
--- NOTE | 2020-01-04 09:18 | Anesthesia Day of Surgery ---
Anesthesia Day of Surgery - Day of Surgery Patient Examined: Yes Patient H&P Reviewed: Yes Patient is NPO: Yes
--- NOTE | 2020-01-04 09:18 | Anesthesia Consultation ---
Anesthesia Consult and Med Hx Date of service: 01/04/20 - Airway Anesthetic Teeth Evaluation: Dentures ROM Head & Neck: Adequate Mental/Hyoid Distance: Adequate Mallampati Class: Class II Intubation Access Assessment: Probably Good - Pre-Operative Health Status ASA Pre-Surgery Classification: ASA3, Emergency Proposed Anesthetic Plan: MAC - Pulmonary Hx Smoking: Yes Hx Asthma: No Hx Respiratory Symptoms: No SOB: Yes COPD: Yes Home Oxygen Therapy: No Hx Pneumonia: No Hx Sleep Apnea: No - Cardiovascular System Hx Hypertension: Yes Hx Coronary Artery Disease: No Hx Heart Attack/AMI: No Hx Angina: No Hx Percutaneous Transluminal Coronary Angioplasty (PTCA): No Hx Cardia Arrhythmia: No Hx Pacemaker: No Hx Internal Defibrillator: No Hx Valvular Heart Disease: No Hx Heart Murmur: No Hx Peripheral Vascular Disease: No - Central Nervous System Hx Neuromuscular Disorder: No Hx Seizures: No CVA: No Hx Back Pain: No Hx Psychiatric Problems: No - Gastrointestinal Hx Ulcer: No Hx Gastroesophageal Reflux Disease: No - Endocrine Hx Renal Disease: No Hx End Stage Renal Disease: No Hx Cirrhosis: No Hx Liver Disease: No Hx Insulin Dependent Diabetes: No Hx Non-Insulin Dependent Diabetes: No Hx Thyroid Disease: No Hx Hypothyroidism: Yes Hx Hyperthyroidism: No - Hematic Hx Anemia: No Hx Sickle Cell Disease: No - Other Systems Hx Alcohol Use: No Hx Substance Use: No Hx Cancer: Yes (colon ca) Hx Obesity: No
--- NOTE | 2020-01-04 09:20 | Post Anesthesia Evaluation ---
- Post Anesthesia Evaluation Patient Participated: Yes Airway Patent: Yes Stable Respiratory Function: Yes Nausea/Vomiting: No Temp > 96.8F: Yes Pain Manageable: Yes Adequeate Hydration: Yes Anesthesia Complications: No Block Receding Appropriately: Not Applicable Patient on Ventilator: No
--- NOTE | 2020-01-04 09:43 | Operative Report ---
PROCEDURE PERFORMED: Esophagogastroduodenoscopy with cold biopsy. PREOPERATIVE DIAGNOSIS: Melena. POSTOPERATIVE DIAGNOSES: Duodenal ulcer and gastritis. ENDOSCOPIST: Deep Ramon M.D. INSTRUMENT: Olympus video endoscope. MEDICATIONS: MAC anesthesia by Anesthesia Services. COMPLICATIONS: No apparent complications. ESTIMATED BLOOD LOSS: Minimal. SPECIMENS: 1. Duodenal bulb ulcer. 2. Gastric antrum, rule out H. pylori. IMPLANTS: None. ASSISTANTS: None. CONDITION AT COMPLETION: Stable. TECHNIQUE: The patient was informed of the risks and benefits of the procedure. She signed the informed consent to proceed. She was placed in the left lateral decubitus position. The above sedative medications were given. Her vital signs remained stable throughout the procedure. The instrument was advanced from the mouth to the second portion of the duodenum under direct visualization. At that point, the bowel was insufflated and the endoscope was slowly withdrawn. FINDINGS: 1. Large, 2 cm, white-based cratered ulcer in the duodenal bulb, that was graciela-circumferential. A. The margins were biopsied, but likely this is nonsteroidal anti-inflammatory drug, and tobacco, related. B. There was no evidence of obstruction and the endoscope passed easily into the second portion of the duodenum. 2. Severe erosive gastritis in the antrum of the stomach, status post cold biopsy to rule out H. pylori. 3. Hiatal hernia. 4. Normal esophagus. RECOMMENDATIONS: 1. The patient must discontinue all nonsteroidal anti-inflammatory drugs and discontinue smoking, and even must discontinue cardiac aspirin for now. 2. Continue Protonix daily therapy. 3. If the ulcer rebleeds, the large size would preclude endoscopic management; the patient will need Interventional Radiology to embolize. 4. Advance the patient's diet and may discharge her home when her hematocrit is stable and she is taking food and liquids. JOB# [id number] KAREN/CHANELL
[2020-01-04] MEDS: MULTIVITAMINS,THER W-MINERALS TAB PO SCH (11:00)
[2020-01-04] MEDS: POTASSIUM CHLORIDE ER 20 MEQ TAB PO SCH (11:00)
--- NOTE | 2020-01-04 11:03 | Progress Note ---
Assessment and Plan - Patient Problems (1) Acute kidney injury Current Visit: Yes Status: Acute Plan to address problem: Secondary to prerenal azotemia. IV volume hydration. Resolving (2) Gastroenteritis Current Visit: Yes Status: Acute Plan to address problem: Patient with evidence of colitis on exam. Add Flagyl Levaquin. (3) Gastrointestinal bleeding Current Visit: Yes Status: Acute Qualifiers: GI bleed type/associated pathology: diverticulosis Qualified Code(s): K57.91 - Diverticulosis of intestine, part unspecified, without perforation or abscess with bleeding Plan to address problem: Patient with large ulcerated crater in the duodenal bulb. Most likely secondary to NSAIDs. Continue Protonix. Discontinue all NSAIDs stop smoking. (4) Hypokalemia Current Visit: Yes Status: Acute Plan to address problem: Correct p.o. at this time. (5) Symptomatic anemia Current Visit: Yes Status: Acute Plan to address problem: H&H stable after transfusion we will follow-up CBC today. (6) HTN (hypertension) Current Visit: Yes Status: Chronic Qualifiers: Hypertension type: essential hypertension Qualified Code(s): I10 - Essential (primary) hypertension Plan to address problem: At present patient has optimal control continue medical management. Blood pressure 123/57. (7) Hypothyroidism (acquired) Current Visit: Yes Status: Chronic Plan to address problem: Follow TSH continue Synthroid at current dose. (8) COPD (chronic obstructive pulmonary disease) Current Visit: Yes Status: Inactive Qualifiers: COPD type: unspecified COPD Qualified Code(s): J44.9 - Chronic obstructive pulmonary disease, unspecified Plan to address problem: Patient with only mild minimal wheezing. Continue nebulized as needed albuterol MDI as needed. (9) Rectal cancer Current Visit: Yes Status: Acute Plan to address problem: Patient with a history of rectal cancer status post chemo XRT and surgical correction. Follow-up with oncology as outpatient. History Interval history: Patient this a.m. stable no new events reported over p.m. Abdominal pain much improved. Patient for EGD today. Hospitalist Physical - Constitutional Vitals: Temp Pulse Resp BP Pulse Ox 97.9 F 72 14 123/57 94 01/04/20 09:04 01/04/20 09:19 01/04/20 09:19 01/04/20 09:19 05/24/20 09:19 General appearance: Present: no acute distress, well-nourished - EENT Eyes: Present: PERRL, EOM intact ENT: hearing intact, clear oral mucosa, dentition normal - Neck Neck: Present: supple, normal ROM - Respiratory Respiratory: bilateral: CTA - Cardiovascular Rhythm: regular - Extremities Extremities: no ischemia, pulses intact, pulses symmetrical, No edema, normal temperature, normal color - Abdominal General gastrointestinal: soft, non-tender, non-distended, normal bowel sounds - Integumentary Integumentary: Present: clear, warm, dry - Psychiatric Psychiatric: appropriate mood/affect, intact judgment & insight, memory intact - Neurologic Neurologic: CNII-XII intact, moves all extremities Results - Labs CBC & Chem 7: 01/03/20 05:37 01/03/20 05:37 Labs: Laboratory Last Values WBC 3.6 K/mm3 (4.5-11.0) L 01/03/20 05:37 RBC 2.02 M/mm3 (3.65-5.03) L 01/03/20 05:37 Hgb 6.3 gm/dl (10.1-14.3) L 01/03/20 05:37 Hct 18.8 % (30.3-42.9) L* 01/03/20 05:37 MCV 93 fl (79-97) 01/03/20 05:37 MCH 31 pg (28-32) 01/03/20 05:37 MCHC 34 % (30-34) 01/03/20 05:37 RDW 16.7 % (13.2-15.2) H 01/03/20 05:37 Plt Count 171 K/mm3 (140-440) 01/03/20 05:37 Lymph % (Auto) 10.6 % (13.4-35.0) L 01/03/20 05:37 [place] % (Auto) 14.1 % (0.0-7.3) H 01/03/20 05:37 Eos % (Auto) 2.3 % (0.0-4.3) 01/03/20 05:37 Baso % (Auto) 1.4 % (0.0-1.8) 01/03/20 05:37 Lymph # 0.4 K/mm3 (1.2-5.4) L 01/03/20 05:37 [place] # 0.5 K/mm3 (0.0-0.8) 01/03/20 05:37 Eos # 0.1 K/mm3 (0.0-0.4) 01/03/20 05:37 Baso # 0.0 K/mm3 (0.0-0.1) 01/03/20 05:37 Seg Neutrophils % 71.6 % (40.0-70.0) H 01/03/20 05:37 Seg Neutrophils # 2.6 K/mm3 (1.8-7.7) 01/03/20 05:37 Sodium 138 mmol/L (137-145) 01/03/20 05:37 Potassium 3.1 mmol/L (3.6-5.0) L 01/03/20 05:37 Chloride 100.6 mmol/L (98-107) 01/03/20 05:37 Carbon Dioxide 26 mmol/L (22-30) 01/03/20 05:37 Anion Gap 15 mmol/L 01/03/20 05:37 BUN 19 mg/dL (7-17) H 01/03/20 05:37 Creatinine 0.3 mg/dL (0.7-1.2) L 01/03/20 05:37 Estimated GFR > 60 ml/min 01/03/20 05:37 BUN/Creatinine Ratio 63 % 01/03/20 05:37 Glucose 91 mg/dL (65-100) 01/03/20 05:37 Hemoglobin A1c 4.6 % (4-6) 01/02/20 20:44 Calcium 7.5 mg/dL (8.4-10.2) L 01/03/20 05:37 Total Bilirubin 0.40 mg/dL (0.1-1.2) 01/03/20 05:37 AST 14 units/L (5-40) 01/03/20 05:37 ALT 7 units/L (7-56) 01/03/20 05:37 Alkaline Phosphatase 46 units/L (35-129) 01/03/20 05:37 Total Protein 5.0 g/dL (6.3-8.2) L 01/03/20 05:37 Albumin 2.8 g/dL (3.9-5) L 01/03/20 05:37 Albumin/Globulin Ratio 1.3 % 01/03/20 05:37 Blood Type A NEGATIVE 01/02/20 16:07 Antibody Screen Negative 01/02/20 16:07 Crossmatch See Detail 01/02/20 16:07 [place]/IV: Voiding Method Toilet IV Catheter Type [Left Peripheral IV External Jugular] Active Medications - Current Medications Current Medications: Generic Name Dose Route Start Last Admin Trade Name Freq PRN Reason Stop Dose Admin Acetaminophen 650 mg 01/02/20 19:41 Tylenol PO Q4H PRN Pain MILD(1-3)/Fever >100.5/RICHEY Albuterol 2.5 mg 01/02/20 19:44 Proventil IH Q4HRT PRN Wheezing Diltiazem HCl 120 mg 01/02/20 22:00 01/03/20 21:45 Cardizem PO Not Given BID LAVELLE Dextrose/Sodium Chloride 1,000 mls @ 100 mls/hr 01/02/20 20:00 01/04/20 02:05 D5ns IV 100 mls/hr DIRECT LAVELLE Administration Sodium Chloride 500 mls @ 0 mls/hr 01/03/20 16:00 Nacl 0.9% 500 Ml IV 01/04/20 15:59 ONCE NR As Directed Sodium Chloride 1,000 mls @ 50 mls/hr 01/04/20 07:45 Nacl 0.9% 1000 Ml IV DIRECT LAVELLE Levothyroxine Sodium 25 mcg 01/03/20 06:00 01/04/20 05:54 Synthroid PO Not Given DAILY@0600 LAVELLE Multivitamins/Minerals 1 each 01/04/20 10:00 Theragran-M Tab PO QDAY LAVELLE Ondansetron HCl 4 mg 01/02/20 19:41 Zofran IV Q8H PRN Nausea And Vomiting Pantoprazole Sodium 40 mg 01/03/20 22:00 01/03/20 21:45 Protonix IV 40 mg BID LAVELLE Administration Potassium Chloride 20 meq 01/03/20 10:00 01/03/20 10:12 K-Dur PO 20 meq QDAY LAVELLE Administration Sodium Chloride 10 ml 01/02/20 22:00 01/03/20 21:45 Sodium Chloride Flush Syringe 10 Ml IV 10 ml BID LAVELLE Administration Sodium Chloride 10 ml 01/02/20 19:41 Sodium Chloride Flush Syringe 10 Ml IV PRN PRN LINE FLUSH Nutrition/Malnutrition Assess - Dietary Evaluation Nutrition/Malnutrition Findings: Nutrition Notes Start: 01/03/20 09:05 Freq: Status: Active Protocol: Document 01/03/20 09:05 LP (Rec: 01/03/20 09:12 LP [id number]) Nutrition Notes Need for Assessment generated from: MD Order Initial or Follow up Assessment Current Diagnosis Acute Kidney Injury,COPD, Decubitus(Pressure Ulcer), Hypertension Other Pertinent Diagnosis GIB, dehydration, sacral wound Current Diet Clear liquid with Ensure clear Labs/Tests K 3.1 BUN 19 Pertinent Medications D5NS at 100ml/hr Height 5 ft 4 in Weight 42.1 kg Usual Body Weight 44 kg [place] Body Weight (kg) 54.54 BMI 15.9 Weight change and time frame 4.5% wt loss in 1 week Weight Status Underweight Subjective/Other Information Consult for wt loss in 1 week. 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 No Is Patient Ambulatory and/or Out of Bed No REE-([facility]-confined to bed) 1123.320 Kcal/Kg value to use for calculation 37 Approximate Energy Requirements Using 1558 kcal/Kg Calculation Used for Recommendations Kcal/kg Additional Notes Protein needs are 50-63g (1.2- 1.5g/kg) Fluid needs are 1ml/kcal Nutrition Intervention Change Diet Order: Advance as feasible Add Supplement/Snack (indicate name/kcal Ensure Clear TID /protein ) Provides kCal: 720 Provides Protein (gm) 24 Goal #1 Meet at least 75% of kcal and protein needs via clear liquid diet and ONS Goal #2 Wound healing Goal #3 Weight gain/ maintenance Anticipated Discharge Needs: Unable to determine at this time Follow-Up By: 01/05/20 Additional Comments Follow for intakes/diet advancement
[2020-01-04] MEDS: PANTOPRAZOLE 40 MG INJ IV SCH ×2 (11:05→21:48)
[2020-01-04] MEDS: levoFLOXacin 500 MG TAB PO SCH (11:56)
[2020-01-04] MEDS: dilTIAZem 60 MG TAB PO SCH ×2 (11:57→21:49)
[2020-01-04] MEDS ORDERED: metroNIDAZOLE 250 MG TAB PO SCH (12:00)
[2020-01-04] MEDS: metroNIDAZOLE 500 MG TAB PO SCH ×2 (12:59→21:48)
[2020-01-04 13:15] LABS: Basophils % (Auto) 1.2 % (0.0-1.8); Hemoglobin 9.2 gm/dl (10.1-14.3); Lymphocytes # (Auto) 0.4 K/mm3 (1.2-5.4); Mean Corpuscular HGB Conc 34 % (30-34); Mean Corpuscular Volume 95 fl (79-97); Monocytes # (Auto) 0.3 K/mm3 (0.0-0.8); Monocytes % (Auto) 7.7 % (0.0-7.3); Platelet Count 173 K/mm3 (140-440); Red Blood Count 2.85 M/mm3 (3.65-5.03); Red Cell Distribution Width 16.7 % (13.2-15.2)
[2020-01-04] MEDS: MORPHINE 2 MG/1 ML INJ IV PRN (14:55)
[2020-01-05] MEDS: D5W/0.9% NACL 1,000 ML IV SCH (00:33)
[2020-01-05] MEDS: MORPHINE 2 MG/1 ML INJ IV PRN ×2 (04:23→09:44)
[2020-01-05] MEDS: metroNIDAZOLE 500 MG TAB PO SCH ×3 (05:55→21:55)
[2020-01-05] MEDS: LEVOTHYROXINE 25 MCG TAB PO SCH (05:55)
[2020-01-05] MEDS: MULTIVITAMINS,THER W-MINERALS TAB PO SCH (09:43)
[2020-01-05] MEDS: dilTIAZem 60 MG TAB PO SCH ×2 (09:43→21:55)
[2020-01-05] MEDS: POTASSIUM CHLORIDE ER 20 MEQ TAB PO SCH (09:43)
[2020-01-05] MEDS: levoFLOXacin 500 MG TAB PO SCH (09:43)
[2020-01-05] MEDS ORDERED: PANTOPRAZOLE 40 MG TAB PO SCH (10:00)
[2020-01-05] MEDS ORDERED: MORPHINE 2 MG/1 ML INJ IV PRN (12:47)
--- NOTE | 2020-01-05 12:56 | Gastroenterology Progress Note ---
Assessment and Plan - Patient Problems (1) Duodenal ulcer with hemorrhage Current Visit: Yes Status: Acute Plan to address problem: - Large DU at EGD 01/03 but no signs of obstruction or further bleeding. - Patient must d/c all NSAIDs (even cardiac ASA) for now, and d/c smoking. - OK to d/c home on protonix QD and daily MVI. - Patient to f/u clinic in 3-4 weeks; will rescope given size of ulcer if further anemia or signs of obstruction. Subjective Date of service: 01/05/20 Principal diagnosis: DU with Hemorrhage Interval history: The patient has had no melena or hematemesis since her procedure. She is tolerating a mechanical soft diet, without pain or vomiting. She has had no significant diarrhea. Objective - Constitutional Vitals: Temp Pulse Resp BP Pulse Ox 97.8 F 76 19 126/60 99 01/05/20 12:00 01/05/20 12:00 01/05/20 12:00 01/05/20 12:00 01/05/20 12:00 General appearance: no acute distress - Respiratory Respiratory effort: normal Respiratory: bilateral: CTA - Cardiovascular Rhythm: regular Heart Sounds: Present: S1 & S2 - Gastrointestinal General gastrointestinal: Present: soft, non-tender, non-distended - Labs CBC & Chem 7: 01/04/20 12:22 01/03/20 05:37 Labs: Laboratory Results - last 24 hr 01/04/20 12:22 WBC 4.1 L RBC 2.85 L Hgb 9.2 L Hct 27.0 L D MCV 95 MCH 32 MCHC 34 RDW 16.7 H Plt Count 173 Lymph % (Auto) 11.0 L [place] % (Auto) 7.7 H Eos % (Auto) 1.0 Baso % (Auto) 1.2 Lymph # 0.4 L [place] # 0.3 Eos # 0.0 Baso # 0.0 Seg Neutrophils % 79.1 H Seg Neutrophils # 3.2
--- NOTE | 2020-01-05 13:57 | Discharge Summary ---
Providers - Providers Date of Admission: 01/02/20 16:38 Date of discharge: 01/05/20 Attending physician: ANDREW PRITCHETT 01/02/20 19:49 Consult to Physician [CONS] Routine Comment: Consulting Provider: ROSELIA PISANO Physician Instructions: Reason For Exam: Diarrhea and GI bleed 01/03/20 06:20 Consult to Dietitian/Nutrition [CONS] Routine Physician Instructions: Reason For Exam: Reason for Consult: pt reports loss of 5 lbs in one week Primary care physician: None Hospitalization Condition: Good Hospital course: 69-year-old female with history of hypertension. Rectal cancer status post chemo XRT surgical treatment. Presented with midepigastric pain and melanotic stool. Patient found to have upper GI bleed. This was secondary to large duodenal ulcer which was biopsied. Patient had no further bleeding after that incident and no further pain. Patient stable to be discharge with Protonix. Patient was to stop smoking and taking NSAIDs. The NSAIDs were thought to be primary reason for patient's GI bleed acute blood loss anemia. Disposition: - TO HOME OR SELFCARE - Discharge Diagnoses (1) Acute kidney injury Status: Acute (2) Gastroenteritis Status: Acute (3) Gastrointestinal bleeding Status: Acute Qualifiers: GI bleed type/associated pathology: diverticulosis Qualified Code(s): K57.9 1 - Diverticulosis of intestine, part unspecified, without perforation or abscess with bleeding (4) Hypokalemia Status: Acute (5) Symptomatic anemia Status: Acute (6) HTN (hypertension) Status: Chronic Qualifiers: Hypertension type: essential hypertension Qualified Code(s): I10 - Essential (primary) hypertension (7) Hypothyroidism (acquired) Status: Chronic (8) COPD (chronic obstructive pulmonary disease) Status: Inactive Qualifiers: COPD type: unspecified COPD Qualified Code(s): J44.9 - Chronic obstructive pulmonary disease, unspecified (9) Rectal cancer Status: Acute Core Measure Documentation - Palliative Care Palliative Care/ Comfort Measures: Not Applicable - Core Measures Any of the following diagnoses?: none Exam - Constitutional Vitals: Temp Pulse Resp BP Pulse Ox 97.8 F 68 16 126/60 99 01/05/20 12:00 01/05/20 12:00 01/05/20 13:50 01/05/20 12:00 01/05/20 12:00 General appearance: Present: no acute distress, well-nourished - EENT Eyes: Present: PERRL ENT: hearing intact, clear oral mucosa - Neck Neck: Present: supple, normal ROM - Respiratory Respiratory effort: normal Respiratory: bilateral: CTA - Cardiovascular Heart Sounds: Present: S1 & S2. Absent: rub, click - Extremities Extremities: pulses symmetrical, No edema Peripheral Pulses: within normal limits - Abdominal General gastrointestinal: Present: soft, non-tender, non-distended, normal bowel sounds Female genitourinary: Present: normal - Integumentary Integumentary: Present: clear, warm, dry - Musculoskeletal Musculoskeletal: gait normal, strength equal bilaterally - Psychiatric Psychiatric: appropriate mood/affect, intact judgment & insight - Neurologic Neurologic: CNII-XII intact, moves all extremities Plan Activity: no restrictions, fall precautions Weight Bearing Status: Full Weight Bearing Diet: advance as tolerated Follow up with: [facility] [Other] - 3-5 Days Forms: Accompanied Note Prescriptions: metroNIDAZOLE [Flagyl TAB] 500 mg PO Q8HR #10 tablet Multivitamin Tab W-MINERAL [Multiple Vitamin/Mineral (Theragran M)] 1 each PO QDAY #30 tablet Pantoprazole [Protonix TAB] 40 mg PO QDAY #30 tablet
[2020-01-05] MEDS ORDERED: MORPHINE 2 MG/1 ML INJ IV ONE (16:04)
[2020-01-05] MEDS ORDERED: PANTOPRAZOLE 40 MG INJ IV ONE (16:05)
[2020-01-05] MEDS: PANTOPRAZOLE 40 MG INJ IV SCH (16:17)
[2020-01-05] MEDS: MAGNESIUM HYDROXIDE (MOM) ORAL LIQD UDC PO PRN (18:33)
[2020-01-06] MEDS: metroNIDAZOLE 500 MG TAB PO SCH ×2 (05:09→13:24)
[2020-01-06] MEDS: LEVOTHYROXINE 25 MCG TAB PO SCH (05:09)
--- NOTE | 2020-01-06 07:41 | Discharge Summary ---
Providers - Providers Date of Admission: 01/02/20 16:38 Attending physician: GUSTAVO AMADOR MD 01/02/20 19:49 Consult to Physician [CONS] Routine Comment: Consulting Provider: ROSELIA PISANO Physician Instructions: Reason For Exam: Diarrhea and GI bleed 01/03/20 06:20 Consult to Dietitian/Nutrition [CONS] Routine Physician Instructions: Reason For Exam: Reason for Consult: pt reports loss of 5 lbs in one week Hospitalization Reason for admission: abdominal pain Condition: Good Hospital course: 69-year-old female who is presenting with weakness and diarrhea for the past 3 days. Patient states she is been having large amounts of dark- colored stool. She denies nausea vomiting. Patient states she has crampy abdominal pain in the right lower quadrant. Patient denies fever. Patient was found lying on the ground today covered in feces. Patient was states she was too weak to stand. * Patient was seen by Gi and per their assessment and recommendation * Duodenal ulcer with hemorrhage - Large DU at EGD 01/03 but no signs of obstruction or further bleeding. - Patient must d/c all NSAIDs (even cardiac ASA) for now, and d/c smoking. - OK to d/c home on protonix QD and daily MVI. - Patient to f/u clinic in 3-4 weeks; will rescope given size of ulcer if further anemia or signs of obstruction. - Patient Problems (1) Acute kidney injury Current Visit: Yes Status: Acute Plan to address problem: Secondary to prerenal azotemia. IV volume hydration. Resolved (2) Gastroenteritis Current Visit: Yes Status: Acute Plan to address problem: Patient with evidence of colitis on exam. Add Flagyl Levaquin. (3) Gastrointestinal bleeding Current Visit: Yes Status: Acute Qualifiers: GI bleed type/associated pathology: diverticulosis Qualified Code(s): K57.91 - Diverticulosis of intestine, part unspecified, without perforation or abscess with bleeding Plan to address problem: Patient with large ulcerated crater in the duodenal bulb. Most likely secondary to NSAIDs. Continue Protonix. Discontinue all NSAIDs stop smoking. (4) Hypokalemia Current Visit: Yes Status: Acute Plan to address problem: Correct p.o. at this time. (5) Symptomatic anemia Current Visit: Yes Status: Acute Plan to address problem: H&H stable after transfusion we will follow-up CBC today. (6) HTN (hypertension) Current Visit: Yes Status: Chronic Qualifiers: Hypertension type: essential hypertension Qualified Code(s): I10 - Essential (primary) hypertension Plan to address problem: At present patient has optimal control continue medical management. Blood pressure 123/57. (7) Hypothyroidism (acquired) Current Visit: Yes Status: Chronic Plan to address problem: Follow TSH continue Synthroid at current dose. (8) COPD (chronic obstructive pulmonary disease) Current Visit: Yes Status: Inactive Qualifiers: COPD type: unspecified COPD Qualified Code(s): J44.9 - Chronic obstructive pulmonary disease, unspecified Plan to address problem: Patient with only mild minimal wheezing. Continue nebulized as needed albuterol MDI as needed. (9) Constipation Will hold discharge. I have instructed the Nurse to give Dulculax suppository (10) Rectal cancer Current Visit: Yes Status: Acute Plan to address problem: Patient with a history of rectal cancer status post chemo XRT and surgical correction. Follow-up with oncology as outpatient. Disposition: DC/TX- HOME UNDER HOME [facility] Time spent for discharge: 35 mins Core Measure Documentation - Palliative Care Palliative Care/ Comfort Measures: Not Applicable - Core Measures Any of the following diagnoses?: none Exam - Physical Exam Narrative exam: General appearance: Present: no acute distress, well-nourished. - EENT Eyes: Present: PERRL, EOM intact ENT: hearing intact, clear oral mucosa, dentition normal - Neck Neck: Present: supple, normal ROM - Respiratory Respiratory: bilateral: CTA - Cardiovascular Rhythm: regular - Extremities Extremities: no ischemia, pulses intact, pulses symmetrical, No edema, normal temperature, normal color - Abdominal General gastrointestinal: soft, non-tender, non-distended, normal bowel sounds - Integumentary Integumentary: Present: clear, warm, MILD ANKLE EDEMA - Psychiatric Psychiatric: appropriate mood/affect, intact judgment & insight, memory intact - Neurologic Neurologic: CNII-XII intact, moves all extremities - Constitutional Vitals: Temp Pulse Resp BP Pulse Ox 98.5 F 83 20 121/57 94 01/05/20 23:46 01/06/20 04:00 01/05/20 23:46 01/05/20 23:46 01/05/20 23:46 Plan Activity: advance as tolerated, fall precautions Diet: low fat Special Instructions: record daily weights, record daily BP diary Follow up with: [facility] [Other] - 3-5 Days CRISTIN MORGAN MD [Staff Physician] - 14 Days Forms: Accompanied Note Prescriptions: metroNIDAZOLE [Flagyl TAB] 500 mg PO Q8HR #10 tablet Magnesium Hydroxide [Milk of Magnesia] 30 ml PO QDAY PRN 30 Days #1 oral.liqd PRN Reason: Constipation Multivitamin Tab W-MINERAL [Multiple Vitamin/Mineral (Theragran M)] 1 each PO QDAY #30 tablet Pantoprazole [Protonix TAB] 40 mg PO QDAY #30 tablet
[2020-01-06] MEDS: dilTIAZem 60 MG TAB PO SCH ×2 (11:41→22:16)
[2020-01-06] MEDS: PANTOPRAZOLE 40 MG TAB PO SCH (11:41)
[2020-01-06] MEDS: MULTIVITAMINS,THER W-MINERALS TAB PO SCH (11:41)
[2020-01-06] MEDS: POTASSIUM CHLORIDE ER 20 MEQ TAB PO SCH (11:41)
[2020-01-06] MEDS: levoFLOXacin 500 MG TAB PO SCH (11:41)
[2020-01-06] MEDS: ACETAMINOPHEN 325 MG TAB PO PRN ×2 (13:16→22:14)
[2020-01-06] MEDS: MAGNESIUM HYDROXIDE (MOM) ORAL LIQD UDC PO PRN ×2 (13:24→18:15)
--- NOTE | 2020-01-06 15:29 | Cat Scan Report ---
CT ABDOMEN AND PELVIS WITHOUT CONTRAST INDICATION: MAIN: abd pain with diarrhea for a few days per pt. . TECHNIQUE: Axial CT images were obtained through the abdomen and pelvis without IV contrast. All CT scans at [facility] location are performed using CT dose reduction for ALARA by means of automated exposure control. COMPARISON: None available. FINDINGS: LOWER CHEST: No significant abnormality. LIVER: No significant abnormality. GALLBLADDER: No significant abnormality. BILE DUCTS: No significant abnormality. PANCREAS: No significant abnormality. SPLEEN: No significant abnormality. ADRENALS: No significant abnormality. RIGHT KIDNEY and URETER: No significant abnormality. LEFT KIDNEY and URETER: No significant abnormality. STOMACH and SMALL BOWEL: No significant abnormality. COLON: Marked bowel wall thickening involving the distal transverse, left colon and sigmoid colon wit h mild to moderate bowel wall thickening of the rectum. APPENDIX: No significant abnormality. PERITONEUM: No free fluid. No free air. No fluid collection. LYMPH NODES: No significant adenopathy. AORTA and ARTERIES: Extensive vascular calcifications throughout nonaneurysmal abdominal aorta. IVC and VEINS: No significant abnormality. URINARY BLADDER: No significant abnormality. REPRODUCTIVE ORGANS: No significant abnormality. ADDITIONAL FINDINGS: None. SKELETAL SYSTEM: No significant abnormality. IMPRESSION: 1. Moderate proctocolitis thinning from rectum into the mid transverse colon. Differential considerat ions would include infectious colitis such as C. difficile, inflammatory bowel disease such as ulcera tive colitis. Ischemia colitis is considered less likely. Signer Name: Nhan Barnett MD Signed: 01/02/2020 5:15 PM Workstation Name: [id number]
--- NOTE | 2020-01-06 15:51 | XRay Report ---
ABDOMEN 1 VIEW(S) INDICATION / CLINICAL INFORMATION: r/o obstruction. COMPARISON: None available. FINDINGS: TUBES / LINES: None. BOWEL GAS PATTERN: No significant abnormality. FREE AIR / EXTRALUMINAL GAS: None seen. ADDITIONAL FINDINGS: A sclerotic lesions in the right hip may be bone islands but are nonspecific. IMPRESSION: 1. No significant abnormality. Signer Name: Sammy Leahy MD Signed: 01/06/2020 3:47 PM Workstation Name: [id number]
[2020-01-06] MEDS: MAGNESIUM HYDROXIDE (MOM) ORAL LIQD UDC PO SCH (22:14)
--- NOTE | 2020-01-07 08:01 | Progress Note ---
Assessment and Plan Assessment and plan: 69-year-old female who is presenting with weakness and diarrhea for the past 3 days. Patient states she is been having large amounts of dark- colored stool. She denies nausea vomiting. Patient states she has crampy abdominal pain in the right lower quadrant. Patient denies fever. Patient was found lying on the ground today covered in feces. Patient was states she was too weak to stand. * Patient was seen by Gi and per their assessment and recommendation * Duodenal ulcer with hemorrhage - Large DU at EGD 01/03 but no signs of obstruction or further bleeding. - Patient must d/c all NSAIDs (even cardiac ASA) for now, and d/c smoking. - OK to d/c home on protonix QD and daily MVI. - Patient to f/u clinic in 3-4 weeks; will rescope given size of ulcer if further anemia or signs of obstruction. - Patient Problems (1) Acute kidney injury Current Visit: Yes Status: Acute Plan to address problem: Secondary to prerenal azotemia. IV volume hydration. Resolved (2) Gastroenteritis Current Visit: Yes Status: Acute Plan to address problem: Patient with evidence of colitis on exam. Add Flagyl Levaquin. (3) Gastrointestinal bleeding Current Visit: Yes Status: Acute Qualifiers: GI bleed type/associated pathology: diverticulosis Qualified Code(s): K57.9 1 - Diverticulosis of intestine, part unspecified, without perforation or abscess with bleeding Plan to address problem: Patient with large ulcerated crater in the duodenal bulb. Most likely secondary to NSAIDs. Continue Protonix. Discontinue all NSAIDs stop smoking. (4) Hypokalemia Current Visit: Yes Status: Acute Plan to address problem: Correct p.o. at this time. (5) Symptomatic anemia Current Visit: Yes Status: Acute Plan to address problem: H&H stable after transfusion we will follow-up CBC today. (6) HTN (hypertension) Current Visit: Yes Status: Chronic Qualifiers: Hypertension type: essential hypertension Qualified Code(s): I10 - Xander calhoun (primary) hypertension Plan to address problem: At present patient has optimal control continue medical management. Blood pressure 123/57. (7) Hypothyroidism (acquired) Current Visit: Yes Status: Chronic Plan to address problem: Follow TSH continue Synthroid at current dose. (8) COPD (chronic obstructive pulmonary disease) Current Visit: Yes Status: Inactive Qualifiers: COPD type: unspecified COPD Qualified Code(s): J44.9 - Chronic obstructive pulmonary disease, unspecified Plan to address problem: Patient with only mild minimal wheezing. Continue nebulized as needed albuterol MDI as needed. (9) Constipation Will hold discharge. I have instructed the Nurse to give Dulculax suppository (10) Rectal cancer Current Visit: Yes Status: Acute Plan to address problem: Patient with a history of rectal cancer status post chemo XRT and surgical correction. Follow-up with oncology as outpatient. History Interval history: Patient seen and examined, reports lethargic and generalized weakness. although i was informed earlier today that patient had a bowel movement, she did not as i was later made to understand. will discontinue discharge plans. This is a late entry Hospitalist Physical - Physical exam Narrative exam: General appearance: Present: no acute distress, well-nourished. LETHARGIC - EENT Eyes: Present: PERRL, EOM intact ENT: hearing intact, clear oral mucosa, dentition normal - Neck Neck: Present: supple, normal ROM - Respiratory Respiratory: bilateral: CTA - Cardiovascular Rhythm: regular - Extremities Extremities: no ischemia, pulses intact, pulses symmetrical, No edema, normal temperature, normal color - Abdominal General gastrointestinal: soft, non-tender, non-distended, normal bowel sounds - Integumentary Integumentary: Present: clear, warm, dry - Psychiatric Psychiatric: appropriate mood/affect, intact judgment & insight, memory intact - Neurologic Neurologic: CNII-XII intact, moves all extremities - Constitutional Vitals: Temp Pulse Resp BP Pulse Ox 97.4 F L 74 18 140/70 95 01/07/20 07:38 01/07/20 07:38 01/07/20 07:38 01/07/20 07:38 01/07/20 07:38 General appearance: Present: no acute distress, well-nourished Results - Labs CBC & Chem 7: 01/04/20 12:22 01/03/20 05:37 Labs: Laboratory Last Values WBC 4.1 K/mm3 (4.5-11.0) L 01/04/20 12:22 RBC 2.85 M/mm3 (3.65-5.03) L 01/04/20 12:22 Hgb 9.2 gm/dl (10.1-14.3) L 01/04/20 12:22 Hct 27.0 % (30.3-42.9) L D 01/04/20 12:22 MCV 95 fl (79-97) 01/04/20 12:22 MCH 32 pg (28-32) 01/04/20 12:22 MCHC 34 % (30-34) 01/04/20 12:22 RDW 16.7 % (13.2-15.2) H 01/04/20 12:22 Plt Count 173 K/mm3 (140-440) 01/04/20 12:22 Lymph % (Auto) 11.0 % (13.4-35.0) L 01/04/20 12:22 [place] % (Auto) 7.7 % (0.0-7.3) H 01/04/20 12:22 Eos % (Auto) 1.0 % (0.0-4.3) 01/04/20 12:22 Baso % (Auto) 1.2 % (0.0-1.8) 01/04/20 12:22 Lymph # 0.4 K/mm3 (1.2-5.4) L 01/04/20 12:22 [place] # 0.3 K/mm3 (0.0-0.8) 01/04/20 12:22 Eos # 0.0 K/mm3 (0.0-0.4) 01/04/20 12:22 Baso # 0.0 K/mm3 (0.0-0.1) 01/04/20 12:22 Seg Neutrophils % 79.1 % (40.0-70.0) H 01/04/20 12:22 Seg Neutrophils # 3.2 K/mm3 (1.8-7.7) 01/04/20 12:22 Sodium 138 mmol/L (137-145) 01/03/20 05:37 Potassium 3.1 mmol/L (3.6-5.0) L 01/03/20 05:37 Chloride 100.6 mmol/L (98-107) 01/03/20 05:37 Carbon Dioxide 26 mmol/L (22-30) 01/03/20 05:37 Anion Gap 15 mmol/L 01/03/20 05:37 BUN 19 mg/dL (7-17) H 01/03/20 05:37 Creatinine 0.3 mg/dL (0.7-1.2) L 01/03/20 05:37 Estimated GFR > 60 ml/min 01/03/20 05:37 BUN/Creatinine Ratio 63 % 01/03/20 05:37 Glucose 91 mg/dL (65-100) 01/03/20 05:37 Hemoglobin A1c 4.6 % (4-6) 01/02/20 20:44 Calcium 7.5 mg/dL (8.4-10.2) L 01/03/20 05:37 Total Bilirubin 0.40 mg/dL (0.1-1.2) 01/03/20 05:37 AST 14 units/L (5-40) 01/03/20 05:37 ALT 7 units/L (7-56) 01/03/20 05:37 Alkaline Phosphatase 46 units/L (35-129) 01/03/20 05:37 Total Protein 5.0 g/dL (6.3-8.2) L 01/03/20 05:37 Albumin 2.8 g/dL (3.9-5) L 01/03/20 05:37 Albumin/Globulin Ratio 1.3 % 01/03/20 05:37 Blood Type A NEGATIVE 01/02/20 16:07 Antibody Screen Negative 01/02/20 16:07 Crossmatch See Detail 01/02/20 16:07 [place]/IV: Voiding Method Toilet IV Catheter Type [Left Peripheral IV External Jugular] Active Medications - Current Medications Current Medications: Generic Name Dose Route Start Last Admin Trade Name Freq PRN Reason Stop Dose Admin Acetaminophen 650 mg 01/02/20 19:41 01/06/20 22:14 Tylenol PO 650 mg Q4H PRN Administration Pain MILD(1-3)/Fever >100.5/RICHEY Albuterol 2.5 mg 01/02/20 19:44 Proventil IH Q4HRT PRN Wheezing Diltiazem HCl 120 mg 01/02/20 22:00 01/06/20 22:16 Cardizem PO Not Given BID LAVELLE Dextrose/Sodium Chloride 1,000 mls @ 100 mls/hr 01/02/20 20:00 01/05/20 00:33 D5ns IV 100 mls/hr DIRECT LAVELLE Administration Levofloxacin 500 mg 01/04/20 12:00 01/06/20 11:41 Levaquin PO 01/10/20 10:01 500 mg Q24HR LAVELLE Administration Levothyroxine Sodium 25 mcg 01/03/20 06:00 01/06/20 05:09 Synthroid PO 25 mcg DAILY@0600 LAVELLE Administration Magnesium Hydroxide 30 ml 01/06/20 22:00 01/06/20 22:14 Milk Of Magnesia PO 30 ml BID LAVELLE Administration Multivitamins/Minerals 1 each 01/04/20 10:00 01/06/20 11:41 Theragran-M Tab PO 1 each QDAY LAVELLE Administration Ondansetron HCl 4 mg 01/02/20 19:41 Zofran IV Q8H PRN Nausea And Vomiting Pantoprazole Sodium 40 mg 01/06/20 10:00 01/06/20 11:41 Protonix PO 40 mg QDAY LAVELLE Administration Potassium Chloride 20 meq 01/03/20 10:00 01/06/20 11:41 K-Dur PO 20 meq QDAY LAVELLE Administration Sodium Chloride 10 ml 01/02/20 22:00 01/06/20 22:15 Sodium Chloride Flush Syringe 10 Ml IV 10 ml BID LAVELLE Administration Sodium Chloride 10 ml 01/02/20 19:41 Sodium Chloride Flush Syringe 10 Ml IV PRN PRN LINE FLUSH Nutrition/Malnutrition Assess - Dietary Evaluation Nutrition/Malnutrition Findings: Nutrition Notes Start: 01/03/20 09:05 Freq: Status: Active Protocol: Document 01/06/20 12:59 LM (Rec: 01/06/20 13:05 LM [id number]) Nutrition Notes Initial or Follow up Reassessment Current Diagnosis Acute Kidney Injury,COPD, Decubitus(Pressure Ulcer), Hypertension Other Pertinent Diagnosis GIB, dehydration, sacral wound Current Diet Mechanical soft Labs/Tests 3.1 Pertinent Medications reviewed Height 5 ft 4 in Weight 42.1 kg [place] Body Weight (kg) 54.54 BMI 15.9 Weight Status Underweight Subjective/Other Information Pt stated she did not eat much of breakfast due to food being cold and does not like mech soft. Pt stated she can eat regular food. Pt does not like Ensure. Pt only likes Boost. Pt is not drinking Ensure clears. Observed orbital wasting. Burn Absent Trauma Absent Current % PO Negligible Minimum of two criteria Yes Interpretation of Weight Loss (severe) >2% in 1 week Body Fat Depletion Mild depletion (non-severe) Reduced [employer] Trailer Strength Measurably Reduced (severe) #2 Nutrition Diagnosis Increased nutrient needs ( specify in comment below) Diagnosis Progress(for reassessment Continues documentation) #1 Nutrition Diagnosis Malnutrition Diagnosis Progress(for reassessment Continues documentation) Is patient on ventilator? No Is Patient Ambulatory and/or Out of Bed No REE-([place]-St. Jeor-confined to bed) 1123.320 Kcal/Kg value to use for calculation 37 Approximate Energy Requirements Using 1558 kcal/Kg Calculation Used for Recommendations Kcal/kg Additional Notes Protein needs are 50-63g (1.2- 1.5g/kg) Fluid needs are 1ml/kcal Nutrition Intervention Change Diet Order: regular Add Supplement/Snack (indicate name/kcal D/C /protein ) Goal #1 Meet at least 75% of kcal and protein needs via clear liquid diet and ONS Goal #2 Wound healing Goal #3 Weight gain/ maintenance Anticipated Discharge Needs: Unable to determine at this time Follow-Up By: 01/08/20 Additional Comments F/U for diet tolerance, intakes
[2020-01-07] MEDS: dilTIAZem 60 MG TAB PO SCH (10:25)
[2020-01-07] MEDS: POTASSIUM CHLORIDE ER 20 MEQ TAB PO SCH (10:25)
[2020-01-07] MEDS: levoFLOXacin 500 MG TAB PO SCH (10:25)
[2020-01-07] MEDS: PANTOPRAZOLE 40 MG TAB PO SCH (10:25)
[2020-01-07] MEDS: LEVOTHYROXINE 25 MCG TAB PO SCH (10:25)
[2020-01-07] MEDS: MAGNESIUM HYDROXIDE (MOM) ORAL LIQD UDC PO SCH ×2 (10:25→10:29)
[2020-01-07] MEDS: MULTIVITAMINS,THER W-MINERALS TAB PO SCH (10:25)
[2020-01-07 12:26] VITALS: BP 136/70
== END 2020-01-07 14:55 | disposition home or self-care (01) | DRG 377 ==
LOC: ED 14:07 → 4A 16:38
PROVIDERS: ADMIT Internal Medicine; ATTEND Internal Medicine
PROC: 30233N1 Transfusion of Nonautologous Red Blood Cells into Peripheral Vein, Percutaneous Approach (ICD-10-PCS; 2020-01-02)
PROC: 3E0234Z Introduction of Serum, Toxoid and Vaccine into Muscle, Percutaneous Approach (ICD-10-PCS; principal; 2020-01-03)
PROC: 0DB98ZX Excision of Duodenum, Via Natural or Artificial Opening Endoscopic, Diagnostic (ICD-10-PCS; 2020-01-04)
PROC: 0DB68ZX Excision of Stomach, Via Natural or Artificial Opening Endoscopic, Diagnostic (ICD-10-PCS; 2020-01-04)
DX: K26.0 Acute duodenal ulcer with hemorrhage (principal); E43 Unspecified severe protein-calorie malnutrition; N17.9 Acute kidney failure, unspecified; Z68.1 Body mass index [BMI] 19.9 or less, adult; K57.91 Diverticulosis of intestine, part unspecified, without perforation or abscess with bleeding; E03.9 Hypothyroidism, unspecified; D64.9 Anemia, unspecified; E86.0 Dehydration; F17.210 Nicotine dependence, cigarettes, uncomplicated; I10 Essential (primary) hypertension; J44.9 Chronic obstructive pulmonary disease, unspecified; K29.00 Acute gastritis without bleeding; K52.9 Noninfective gastroenteritis and colitis, unspecified; E87.6 Hypokalemia; K44.9 Diaphragmatic hernia without obstruction or gangrene; K59.00 Constipation, unspecified; Z23 Encounter for immunization; Z88.0 Allergy status to penicillin; Z71.6 Tobacco abuse counseling; Z88.6 Allergy status to analgesic agent; Z88.5 Allergy status to narcotic agent; Z82.49 Family history of ischemic heart disease and other diseases of the circulatory system; Z85.048 Personal history of other malignant neoplasm of rectum, rectosigmoid junction, and anus
CPT/HCPCS: 36415; 74018; 74176; 80053; 82271; 83036; 85025; 86850; 86900; 86901; 86920; 88305; 88342; 90471; 90732; 93005; 99406; G0378; C9113; G0009; J0500; J1170; J2270; J2704; J3480; J7030; J7040; J7042; P9016